=== PATIENT | female | born 1985 | race Caucasian/White ===

== ENCOUNTER 2016-04-08 18:33 | Emergency (ER) | payer OTHER ==
[~2016-04-08] VITALS: Ht 152.4 cm; Wt 87.8 kg
[~2016-04-08 18:33] MED LIST: ALPR-411 PO; FLUO10CA48 PO; LEVOIUD PV
[2016-04-08 18:55] VITALS: TEMP 37.2; Ht 152.4 cm; Wt 87.8 kg
[2016-04-08 21:01] LABS: BASO % 0.5 %; BASO ABS # 0.04 K/uL (0-0.2); COMPLETE YES; EOS % 3.8 %; HEMATOCRIT 39.4 % (37-47); IG% 0.3 %; LYMPH ABS # 2.36 K/uL (1.2-3.4); MEAN CELL VOLUME 92.5 fL (80-100); MEAN CORPUSCULAR HEMOGLOBIN 31.9 pg (25-34); MEAN CORPUSCULAR HGB CONC 34.5 g/dl (32-36); MEAN PLATELET VOLUME 10.2 fL (7.4-10.4); MONO % 7.3 %; NEUT % 61.1 %; PLATELET COUNT 272 K/uL (130-400); RED BLOOD COUNT 4.26 M/uL (4.2-5.4); WHITE BLOOD COUNT 8.75 K/uL (4.8-10.8)
[2016-04-08 21:04] LABS: MANUAL MICROSCOPIC REQUIRED? NO; REVIEW REQ? NO; URINE APPEARANCE CLEAR (CLEAR); URINE BILIRUBIN NEG (NEG); URINE COLOR YELLOW; URINE EPITHELIAL CELL AUTO >30 /lpf (0-5); URINE NITRITE NEG (NEG); URINE PH 5.5 (4.5-7.5); URINE SPECIFIC GRAVITY 1.024 (1.000-1.030); UROBILINOGEN NEG (NEG); ZZUR CULT IF INDIC CLEAN CATCH YES
[2016-04-08 21:23] LABS: PARTIAL THROMBOPLASTIN RATIO 1.1
[2016-04-08 21:26] LABS: BUN/CREATININE RATIO 13.7 (10-20); CALCIUM 9.1 mg/dl (8.5-10.1); CREATININE 0.81 mg/dl (0.60-1.20); POTASSIUM 3.9 mmol/L (3.5-5.1)
[2016-04-08 21:29] LABS: THYROID STIMULATING HORMONE 3.95 uIu/ml (0.300-4.500)
[2016-04-08 22:38] VITALS: BP 148/84; PULSE 64; O2SAT 98
--- NOTE | 2016-04-08 22:53 | EMERGENCY ROOM VISIT NOTE ---
History First contact with patient: 20:12 Chief Complaint: VAGINAL BLEEDING Stated Complaint: HEAVY MEN STRUAL BELEEDING W/ CRAMPING, HAVE IUD History of Present Illness The patient is a 30 year old female who presents to the Emergency Room with complaints of heavy menstrual bleeding for the past one month. The patient states that she has a Mirena IUD which was placed 4 years ago. She states that she has had a menstrual period for the past one month. Prior to that, she had a normal menstrual period and then one week without bleeding. She does not have an CALCULATION REVIEWER in the area. She states she has had some lower abdominal cramping today. The patient states that while she had her IUD, she did have normal monthly periods which were very light. She states that the bleeding is slightly heavier than a normal period now. She changes her tampon every 3 hours. She denies any history of bleeding disorders. She denies any abnormal vaginal discharge or urinary symptoms. She rates her discomfort a 3/10. Review of Systems A complete 10-point Review of Systems was discussed with the patient, with pertinent positives and negatives listed in the History of Present Illness. All remaining Review of Systems questions can be considered negative unless otherwise specified. Past Medical/Surgical History Medical Problems: (1) Depressive Disorder Nec (2) Tobacco Use Disorder Surgical Problems: (1) History of delivery Family History FH: HTN (hypertension) FH: cancer FH: diabetes mellitus Kidney stone Social History Smoking Status: Former Smoker Alcohol Use: occasionally Marital Status: Housing Status: lives with family Current/Historical Medications Scheduled Fluoxetine (Prozac), 20 MG PO DAILY Scheduled PRN Alprazolam (Xanax), 0.5 MG PO TID PRN for Anxiety Miscellaneous Medications Levonorgestrel (Iud) (Mirena), 1 PV Allergies Coded Allergies: Sulfa Drugs (Verified Allergy, Unknown, 04/08/16) Physical Exam Vital Signs Date Time Temp Pulse Resp B/P Pulse Ox O2 Delivery O2 Flow Rate FiO2 04/08/16 22:38 64 18 148/84 98 Room Air 04/08/16 18:55 37.2 69 16 155/94 97 Room Air Physical Exam VITALS: Vitals are noted on the nurse's note and reviewed by myself. Vital signs stable. GENERAL: This is a 30-year-old female, in no acute distress, nondiaphoretic, well-developed well-nourished. SKIN: Capillary reflex less than 2 seconds. HEART: Regular rate and rhythm without murmurs gallops or rubs. LUNGS: Clear to auscultation bilaterally without wheezes, rales or rhonchi. ABDOMEN: Positive bowel sounds x 4. Soft, nontender to palpation. PELVIC: Minimal amount of blood within the vaginal vault. IUD strings are visualized. NEURO: Patient was alert and oriented to person place and time. Medical Decision & Procedures ER Provider Diagnostic Interpretation: PELVIC ULTRASOUND CLINICAL HISTORY: Abnormal menstrual bleeding. Evaluate IUD. COMPARISON STUDY: None TECHNIQUE: Transabdominal and transvaginal sonography of the pelvis was performed. FINDINGS: The uterus measures 8.3 x 4 x 4.8 cm. The endometrium measures 3 mm in thickness. The IUD appears appropriately positioned by sonography. Penetration on this exam is suboptimal. The right ovary measures 3 x 2.1 x 2.6 cm and contains a 2.6 cm cyst. The left ovary measures 3.3 x 1.9 x 1.9 cm. There is color flow within each ovary. IMPRESSION: 1. Appropriately positioned IUD by sonography. 2. 2.6 cm right ovarian cyst. Laboratory Results 04/08/16 20:46 Red Blood Count 4.26, Mean Corpuscular Volume 92.5, Mean Corpuscular Hemoglobin 31.9, Mean Corpuscular Hemoglobin Concent 34.5, Mean Platelet Volume 10.2, Neutrophils (%) (Auto) 61.1, Lymphocytes (%) (Auto) 27.0, Monocytes (%) (Auto) 7.3, Eosinophils (%) (Auto) 3.8, Basophils (%) (Auto) 0.5, Neutrophils # (Auto) 5.35, Lymphocytes # (Auto) 2.36, Monocytes # (Auto) 0.64, Eosinophils # (Auto) 0.33, Basophils # (Auto) 0.04 04/08/16 20:46 Test 04/08/16 20:46 04/08/16 20:47 White Blood Count 8.75 K/uL (4.8-10.8) Red Blood Count 4.26 M/uL (4.2-5.4) Hemoglobin 13.6 g/dL (12.0-16.0) Hematocrit 39.4 % (37-47) Mean Corpuscular Volume 92.5 fL (80-100) Mean Corpuscular Hemoglobin 31.9 pg (25-34) Mean Corpuscular Hemoglobin Concent 34.5 g/dl (32-36) Platelet Count 272 K/uL (130-400) Mean Platelet Volume 10.2 fL (7.4-10.4) Neutrophils (%) (Auto) 61.1 % Lymphocytes (%) (Auto) 27.0 % Monocytes (%) (Auto) 7.3 % Eosinophils (%) (Auto) 3.8 % Basophils (%) (Auto) 0.5 % Neutrophils # (Auto) 5.35 K/uL (1.4-6.5) Lymphocytes # (Auto) 2.36 K/uL (1.2-3.4) Monocytes # (Auto) 0.64 K/uL (0.11-0.59) Eosinophils # (Auto) 0.33 K/uL (0-0.5) Basophils # (Auto) 0.04 K/uL (0-0.2) RDW Standard Deviation 48.2 fL (36.4-46.3) RDW Coefficient of Variation 14.4 % (11.5-14.5) Immature Granulocyte % (Auto) 0.3 % Immature Granulocyte # (Auto) 0.03 K/uL (0.00-0.02) Prothrombin Time 11.0 SECONDS (9.0-12.0) Prothromb Time International Ratio 1.0 (0.9-1.1) Activated Partial Thromboplast Time 28.4 SECONDS (21.0-31.0) Partial Thromboplastin Ratio 1.1 Anion Gap 10.0 mmol/L (3-11) Est Creatinine Clear Calc Drug Dose 99.2 ml/min Estimated GFR () 112.2 Estimated GFR (Non- 96.8 BUN/Creatinine Ratio 13.7 (10-20) Calcium Level 9.1 mg/dl (8.5-10.1) Thyroid Stimulating Hormone (TSH) 3.950 uIu/ml (0.300-4.500) Chemistry Specimen Hemolysis Urine Color YELLOW Urine Appearance CLEAR (CLEAR) Urine pH 5.5 (4.5-7.5) Urine Specific [place] 1.024 (1.000-1.030) Urine Protein NEG (NEG) Urine Glucose (UA) NEG (NEG) Urine Ketones NEG (NEG) Urine Occult Blood TRACE (NEG) Urine Nitrite NEG (NEG) Urine Bilirubin NEG (NEG) Urine Urobilinogen NEG (NEG) Urine Leukocyte Esterase NEG (NEG) Urine WBC (Auto) 1-5 /hpf (0-5) Urine RBC (Auto) 5-10 /hpf (0-4) Urine Hyaline Casts (Auto) 1-5 /lpf (0-5) Urine Epithelial Cells (Auto) >30 /lpf (0-5) Urine Bacteria (Auto) 1+ (NEG) Urine Test NEG (NEG) Medical Decision Differential diagnosis includes malpositioned IUD, abnormal uterine bleeding, fibroids, among others. The patient was evaluated as above. Labs were drawn and IV access was obtained. Imaging studies were performed and read by radiology as above. The patient was reassessed multiple times during their stay in the emergency department and remained in stable condition. The patient is a 30-year-old female who presents today complaining of vaginal bleeding. Pelvic exam showed the IUD in good placement. Ultrasound showed the IUD in appropriate position. Labs were unremarkable. Urine was negative. The patient was instructed to follow up with her CALCULATION REVIEWER for further evaluation. Based on the patient's presentation, lab results, and imaging studies, I feel the patient is stable for outpatient treatment. Discharge instructions were reviewed with the patient. The patient verbalized understanding of my assessment and treatment plan and was discharged home in good condition. Impression Primary Impression: Abnormal vaginal bleeding Departure Information Dispostion Home / Self-Care Condition GOOD Referrals Tiffanie Arredondo D.O. (PCP) Patient Instructions [facility] Additional Instructions For pain control, you can use the following [id number] medicines (if >12 yo): - Regular strength (325mg/tab) Tylenol (acetaminophen) 2 tabs every 4-6 hours as needed. Do not exceed 12 tablets in a 24 hour period. Avoid taking more than 4 grams (4000 mg) of Tylenol per day. This includes any other sources of acetaminophen you may take on a regular basis. - Regular strength (200 mg/tab) Advil (ibuprofen) 1-2 tabs every 4-6 hours as needed. Do not exceed a dose of 3200 mg per day. Call [facility] CALCULATION REVIEWER tomorrow to schedule a follow-up appointment. Return to the emergency department with worsening bleeding, worsening pelvic pain, or any other new/concerning symptoms.
--- NOTE | 2016-04-09 08:56 | DIAGNOSTIC IMAGING REPORT ---
PELVIC ULTRASOUND CLINICAL HISTORY: Abnormal menstrual bleeding. Evaluate IUD. COMPARISON STUDY: None TECHNIQUE: Transabdominal and transvaginal sonography of the pelvis was performed. FINDINGS: The uterus measures 8.3 x 4 x 4.8 cm. The endometrium measures 3 mm in thickness. The IUD appears appropriately positioned by sonography. Penetration on this exam is suboptimal. The right ovary measures 3 x 2.1 x 2.6 cm and contains a 2.6 cm cyst. The left ovary measures 3.3 x 1.9 x 1.9 cm. There is color flow within each ovary. IMPRESSION: 1. Appropriately positioned IUD by sonography. 2. 2.6 cm right ovarian cyst. Electronically signed by: Luis Russo M.D. 04/08/2016 10:50 PM Dictated Date/Time: 04/08/2016 10:45 PM
== END 2016-04-08 23:03 | disposition home or self-care (01) ==
LOC: C.EDB 18:35 → C.EDC 23:03
DX: N93.8 Other specified abnormal uterine and vaginal bleeding (principal); R10.30 Lower abdominal pain, unspecified; F32.9 Major depressive disorder, single episode, unspecified; Z97.5 Presence of (intrauterine) contraceptive device; Z79.899 Other long term (current) drug therapy; Z87.891 Personal history of nicotine dependence

== ENCOUNTER 2019-03-23 17:42 | Inpatient (IN) ==
[2019-03-23] MEDS ORDERED: ONDANSETRON INJ 2 MG/ML 2 ML VIAL IV STA ×2 (19:28→21:35)
[2019-03-23] MEDS ORDERED: SODIUM CHLORIDE 0.9% 1000ML 1,000 ML IV ONE (19:28)
[2019-03-23] MEDS ORDERED: KETOROLAC TROMETHAMINE 15 MG/ML VIAL IV STA ×2 (19:28→21:35)
[2019-03-23 20:02] LABS: Appearance Urine Turbid (Clear); Bacteria Urine Automated 1+ (Negative); Blood Urine 2+ (Negative); Color Urine Dark Yellow; Epithelial Cell Urine Auto >30 /lpf (0-5); Glucose Urine UA Negative (Negative); Ketones Urine 1+ (Negative); Leukocyte Esterase Urine Trace (Negative); Nitrite Urine Negative (Negative); Protein Urine Negative (Negative); Specific Gravity Urine 1.019 (1.000-1.030); Urobilinogen Urine Negative (Negative); WBC Urine Automated >30 /hpf (0-5); pH Urine 7.5 (4.5-7.5)
[2019-03-23 20:03] LABS: Bilirubin Urine 1+ (Negative)
[2019-03-23 20:05] LABS: Ictotest Urine Positive (Negative)
[2019-03-23 20:10] LABS: Basophils # (auto) 0.01 K/uL (0-0.2); Basophils % (auto) 0.1 %; Eosinophils # (auto) 0.12 K/uL (0-0.5); Hematocrit (blood only) 43.8 % (37-47); Immature Granulocytes # (auto) 0.03 K/uL (0.00-0.02); Immature Granulocytes % (auto) 0.2 %; Lymphocytes # (auto) 0.97 K/uL (1.2-3.4); Lymphocytes % (auto) 7.9 %; Mean Corpuscular Hemoglobin 32.7 pg (25-34); Mean Corpuscular Hgb Conc 34.2 g/dL (32-36); Mean Corpuscular Volume 95.4 fL (80-100); Mean Platelet Volume 10.7 fL (7.4-10.4); Monocytes # (auto) 0.69 K/uL (0.11-0.59); Monocytes % (auto) 5.6 %; Neutrophils # (auto) 10.49 K/uL (1.4-6.5); Neutrophils % (auto) 85.2 %; Platelet Count 256 K/uL (130-400); RDW Coefficient of Variation 14.9 % (11.5-14.5); Red Blood Count 4.59 M/uL (4.2-5.4); White Blood Count 12.31 K/uL (4.8-10.8)
[2019-03-23 20:12] LABS: Calcium Oxalate Crystals Urine Present (None Prsent); RBC Urine Automated 0-4 /hpf (0-4)
[2019-03-23 20:27] LABS: BUN Creatinine Ratio 7.6 (10-20); Bilirubin Direct 1.6 mg/dl (0-0.2); Calcium 9.2 mg/dl (8.5-10.1); Creatinine Clr Calc Pharmacy 101.6 ml/min; Est GFR (African American) 126.6; Est GFR (Non-African American) 109.3
[2019-03-23 20:30] LABS: Bilirubin,Total 2.5 mg/dl (0.2-1); Total Protein 8.2 gm/dl (6.4-8.2)
--- NOTE | 2019-03-23 21:09 | Ultrasound Report ---
ABDOMINAL ULTRASOUND, RIGHT UPPER QUADRANT HISTORY: Right upper quadrant pain.. COMPARISON: None. FINDINGS: Pancreas: The pancreatic tail is obscured by overlying bowel gas. The remaining portions of the pancr eas are within normal limits. Liver: No hepatic masses. There is mild intrahepatic bile duct dilatation. Gallbladder: There is a punctate gallstone and a small amount of gallbladder sludge. No gallbladder w all thickening. The gallbladder appears slightly distended. CBD: Distended common bile duct measures up to 9 mm. Right kidney: No hydronephrosis. IMPRESSION: 1. Dilated common bile duct and mild intrahepatic bile duct dilatation. This raises the possibility o f a distal common bile duct obstruction. ERCP or MRCP may help for further evaluation. 2. The gallbladder appears slightly distended. There is a punctate gallstone and a small amount of ga llbladder sludge. No gallbladder wall thickening at this time. ACT 112: Negative or not required by law. Electronically signed by: Jonathan Posey M.D. 03/23/2019 9:07 PM
--- NOTE | 2019-03-23 21:15 | XRay Report ---
CHEST AND ABDOMEN 2 VIEWS HISTORY: Right upper quadrant pain. Epigastric pain. COMPARISON: Chest 05/16/2012. FINDINGS: The lungs are clear. The cardiomediastinal silhouette is top normal in size. There is no pneumoperitoneum or pneumatosis. The bowel gas pattern is unremarkable. No evidence for b owel obstruction. No renal or ureteral calculi. An intrauterine device is seen within the mid pelvis. IMPRESSION: No acute cardiopulmonary process. No evidence for bowel obstruction. ACT 112: Negative or not required by law. Electronically signed by: Jonathan Posey M.D. 03/23/2019 9:14 PM
[2019-03-23] MEDS ORDERED: cefTRIAXone SODIUM 1,000 MG/50 ML BAG IV STA (21:36)
[2019-03-23] MEDS ORDERED: metroNIDAZOLE 500 MG/100 ML BAG IV STA (21:37)
[2019-03-23 22:10] LABS: Magnesium 2.4 mg/dl (1.8-2.4)
[2019-03-23 22:27] LABS: Thyroid Stimulating Hormone 1.18 uIu/ml (0.300-4.500)
--- NOTE | 2019-03-23 22:27 | Emergency Department Note ---
Entered by Marychuy Boyer acting as a scribe for Vin Richard History of Present Illness General Chief complaint: Abdominal Pain Stated complaint: GALBLADDER Time Seen by Provider: 03/23/19 19:24 History of Present Illness Provider complaint: abdominal pain Onset (ago): week(s) 1 Location: abdomen Pain Consistency: + other (worsening) Maximum Pain Intensity: 6 Associated symptoms: + denies other symptoms (abnormal vaginal bleeding or discharge, vomiting) and + other (pain became severe last night, does not believe she is becuase she has an IUD, unprotected sex, nausea) Treatments prior to arrival: none The patient is a 33 year old female who presents to the ED with complaints of worsening abdominal pain that started 1 week ago. Pain is located in the right upper quadrant and epigastric area. No radiation of the pain. The patient states that her pain became severe starting last night. The patient states that she does not believe she is because she has an IUD, but she does admit to having unprotected sex. The patient denies abnormal vaginal bleeding or discharge. The patient states that she feels nauseas but she denies vomiting. The patient denies taking any treatments prior to arrival. The patient notes that she has a history of section. Home Medications Home Medications Medication Instructions Recorded Confirmed Type multivitamin 1 tab PO DAILY 03/23/19 03/23/19 History Allergies Allergy/AdvReac Type Severity Reaction Status Date / Time Sulfa (Sulfonamide Allergy Unknown Unknown Verified 03/23/19 20:24 Antibiotics) Past Med/Surg History Social History Preferred Language: Guyanese Feels Safe at Home: Yes Smoking Status: Never smoker Review of Systems See HPI for pertinent positives & negatives. and A total of 10 systems reviewed and were otherwise negative Physical Exam Vital Signs Vital Signs - 24 hr 03/23/19 17:46 03/23/19 20:34 03/23/19 21:00 Temperature 36.5 C Temperature Source Oral Pulse Rate 64 Pulse Rate [Left Finger] 77 65 Pulse Rhythm Regular Pulse Strength Normal Respiratory Rate 20 18 18 Respiratory Effort / Characteristics Non-Labored Spontaneous Non-Labored Spontaneous Non-Labored Spontaneous Respiratory Depth Normal Normal Normal Respiratory Pattern Regular Regular Regular Blood Pressure 151/92 H Blood Pressure [Left Arm] 129/80 151/88 H Blood Pressure Mean 111 Blood Pressure Mean [Left Arm] 96 109 Blood Pressure Position Sitting Blood Pressure Position [Left Arm] Lying Pulse Oximetry 98 97 96 Oxygen Delivery Method Room Air Room Air Room Air Sepsis Recent Fever Within 48 Hours No Sepsis New/Unexplained Change in Mental Status No Sepsis Action Taken by Nursing No Action Required GENERAL: She is oriented to person, place, and time. She appears well-developed and well-nourished. She does not appear distressed. HENT: Exam performed. -Head: Normocephalic and atraumatic. -Right Ear: External ear normal. No mastoid tenderness. -Left Ear: External ear normal. No mastoid tenderness. -Mouth/Throat: The oropharynx is clear and moist. No trismus in the jaw. No dental abscesses or uvula swelling. No oropharyngeal exudate or tonsillar abscesses. EYES: Conjunctivae and EOM are normal. Pupils are equal, round, and reactive to light. Right eye exhibits no discharge. Left eye exhibits no discharge. No scleral icterus. NECK: Normal range of motion. Neck supple. No JVD present. No spinous process tenderness present. No carotid bruit present. No rigidity. No tracheal deviation and normal range of motion present. No Brudzinski's sign and no Kernig's sign noted. CV: Normal rate, regular rhythm, normal heart sounds and intact distal pulses. There is no peripheral edema. Palpable radial pulses bue. PULM/CHEST: Effort normal and breath sounds normal. No respiratory distress. No stridor. She has no wheezes. She has no rales. Chest Wall: She exhibits no tenderness. ABD: Pain to palpation of epigastric region and RUQ. The abdomen is soft. Bowel sounds are normal. She has no distension. No mass is present. There is no rebound, no guarding, no Pelayo's sign and no tenderness at McBurney's point. Rovsig negative MUSC/SKEL: Normal range of motion. There is no peripheral edema, tenderness or deformity. LYMPH: No cervical adenopathy. NEURO: She is alert and oriented to person, place, and time. She has normal strength. No cranial nerve deficit or sensory deficit. Coordination and gait n ormal. GCS eye subscore is 4. GCS verbal subscore is 5. GCS motor subscore is 6. cerbellar tests wnl. SKIN: Skin is warm and dry. She is not diaphoretic. PSYCH: She has a normal mood and affect. Her behavior is normal. Judgment and thought content normal. Course Course 1922: Past medical records reviewed. The patient was evaluated in room A09A. A complete history and physical exam was performed. 2127: Vital signs stable. Labs show leukocytosis of 12.3. Bilirubin 2.5, direct bilirubin 1.6. AST/ALT 367/306 respectively. Ultrasound showed a dilated, bile duct and intrahepatic ducts. Recommend ERCP and MRCP. I discussed the patient's case with Dr. Elmer Interiano. He will evaluate the patient for further management. I discussed the patient's case with Dr. Shamar Obrien. He agreed to be on consult. He states that MRCP should be done in the morning, and if it is positive, he will arrange for ER CP.He suggests ordering antibiotics, Rocephin and Flagyl. Consultations Consultation #1: I discussed the patient's case with Dr. Elmer Interiano. He will evaluate the patient for further management. Time: 21:28 Consultation #2: I discussed the patient's case with Dr. Shamar Obrien. He agreed to be on consult. MRCP will be done in the morning, and if it is positive, he will arrange for ER CP. He suggests ordering antibiotics Time: 21:31 Administered Medications Metronidazole (Flagyl) 500 mg in 100 mls @ 100 mls/hr IV NOW STA Stop: 03/23/19 22:36 Last Admin: 03/23/19 21:52 Dose: 100 mls/hr Documented by: [id number] Discontinued Medications Sodium Chloride (Nss 1000ml) 1,000 mls @ 999 mls/hr IV .Q1H1M ONE Stop: 03/23/19 20:28 Last Infusion: 03/23/19 21:01 Dose: 0 mls/hr Documented by: [id number] Admin: 03/23/19 19:53 Dose: 999 mls/hr Documented by: [id number] Ceftriaxone Sodium (Rocephin) 1,000 mg in 50 mls @ 100 mls/hr IV NOW STA Stop: 03/23/19 22:05 Last Admin: 03/23/19 21:52 Dose: 100 mls/hr Documented by: [id number] Ketorolac Tromethamine (Toradol) 15 mg IV NOW STA Stop: 03/23/19 19:29 Last Admin: 03/23/19 19:56 Dose: 15 mg Documented by: [id number] Ondansetron HCl (Zofran) 4 mg IV NOW STA Stop: 03/23/19 19:29 Last Admin: 03/23/19 19:55 Dose: 4 mg Documented by: [id number] Medical Decision Making Medical Records Attestation: I reviewed the patient's medical records. Home Medications Current Medication List: was personally reviewed by me Laboratory Data Attestation: I reviewed the patient's lab results. Result diagrams: 03/23/19 19:47 03/23/19 19:47 Lab Results 03/23/19 03/23/19 03/23/19 Range/Units 19:29 19:47 19:47 WBC 12.31 H (4.8-10.8) K/uL RBC 4.59 (4.2-5.4) M/uL Hgb 15.0 (12.0-16.0) g/dL Hct 43.8 (37-47) % MCV 95.4 (80-100) fL MCH 32.7 (25-34) pg MCHC 34.2 (32-36) g/dL RDW Std Deviation 52.0 H (36.4-46.3) fL RDW Coeff of Dennys 14.9 H (11.5-14.5) % Plt Count 256 (130-400) K/uL MPV 10.7 H (7.4-10.4) fL Immature Gran % (Auto) 0.2 % Neut % (Auto) 85.2 % Lymph % (Auto) 7.9 % [place] % (Auto) 5.6 % Eos % (Auto) 1.0 % Baso % (Auto) 0.1 % Immature Gran # (Auto) 0.03 H (0.00-0.02) K/uL Neut # (Auto) 10.49 H (1.4-6.5) K/uL Lymph # (Auto) 0.97 L (1.2-3.4) K/uL [place] # (Auto) 0.69 H (0.11-0.59) K/uL Eos # (Auto) 0.12 (0-0.5) K/uL Baso # (Auto) 0.01 (0-0.2) K/uL Sodium 138 (136-145) mmol/L Potassium 4.0 (3.5-5.1) mmol/L Chloride 104 (98-107) mmol/L Carbon Dioxide 28 (21-32) mmol/L Anion Gap 6.0 (3-11) BUN 6 L (7-18) mg/dl Creatinine 0.72 (0.6-1.2) mg/dl Est Cr Clr Drug Dosing 101.6 ml/min Est GFR ( Amer) 126.6 Est GFR (Non-Af Amer) 109.3 BUN/Creatinine Ratio 7.6 L (10-20) Glucose 108 H (70-99) mg/dl Calcium 9.2 (8.5-10.1) mg/dl Magnesium 2.4 (1.8-2.4) mg/dl Total Bilirubin 2.5 H (0.2-1) mg/dl Direct Bilirubin 1.6 H (0-0.2) mg/dl AST 367 H (15-37) U/L ALT 306 H (12-78) U/L Alkaline Phosphatase 101 (45-117) U/L Total Protein 8.2 (6.4-8.2) gm/dl Albumin 4.0 (3.4-5.0) gm/dl Lipase 83 (73-393) U/L Urine Color Urine Appearance (Clear) Urine pH (4.5-7.5) Ur Specific [place] (1.000-1.030) Urine Protein (Negative) Urine Glucose (UA) (Negative) Urine Ketones (Negative) Urine Blood (Negative) Urine Nitrite (Negative) Urine Bilirubin (Negative) Urine Urobilinogen (Negative) Ur Leukocyte Esterase (Negative) Urine WBC (Auto) (0-5) /hpf Urine RBC (Auto) (0-4) /hpf U Hyaline Cast (Auto) (0-5) /lpf U Epithel Cells (Auto) (0-5) /lpf Urine Bacteria (Auto) (Negative) Urine Crystals (None Prsent) Calcium Oxalate Crystal (None Prsent) POC Ur Test NEG (NEG) 03/23/19 Range/Units 19:47 WBC (4.8-10.8) K/uL RBC (4.2-5.4) M/uL Hgb (12.0-16.0) g/dL Hct (37-47) % MCV (80-100) fL MCH (25-34) pg MCHC (32-36) g/dL RDW Std Deviation (36.4-46.3) fL RDW Coeff of Dennys (11.5-14.5) % Plt Count (130-400) K/uL MPV (7.4-10.4) fL Immature Gran % (Auto) % Neut % (Auto) % Lymph % (Auto) % [place] % (Auto) % Eos % (Auto) % Baso % (Auto) % Immature Gran # (Auto) (0.00-0.02) K/uL Neut # (Auto) (1.4-6.5) K/uL Lymph # (Auto) (1.2-3.4) K/uL [place] # (Auto) (0.11-0.59) K/uL Eos # (Auto) (0-0.5) K/uL Baso # (Auto) (0-0.2) K/uL Sodium (136-145) mmol/L Potassium (3.5-5.1) mmol/L Chloride (98-107) mmol/L Carbon Dioxide (21-32) mmol/L Anion Gap (3-11) BUN (7-18) mg/dl Creatinine (0.6-1.2) mg/dl Est Cr Clr Drug Dosing ml/min Est GFR ( Amer) Est GFR (Non-Af Amer) BUN/Creatinine Ratio (10-20) Glucose (70-99) mg/dl Calcium (8.5-10.1) mg/dl Magnesium (1.8-2.4) mg/dl Total Bilirubin (0.2-1) mg/dl Direct Bilirubin (0-0.2) mg/dl AST (15-37) U/L ALT (12-78) U/L Alkaline Phosphatase (45-117) U/L Total Protein (6.4-8.2) gm/dl Albumin (3.4-5.0) gm/dl Lipase (73-393) U/L Urine Color Dark Yellow Urine Appearance Turbid A (Clear) Urine pH 7.5 (4.5-7.5) Ur Specific [place] 1.019 (1.000-1.030) Urine Protein Negative (Negative) Urine Glucose (UA) Negative (Negative) Urine Ketones 1+ H (Negative) Urine Blood 2+ H (Negative) Urine Nitrite Negative (Negative) Urine Bilirubin 1+ H (Negative) Urine Urobilinogen Negative (Negative) Ur Leukocyte Esterase Trace H (Negative) Urine WBC (Auto) >30 H (0-5) /hpf Urine RBC (Auto) 0-4 (0-4) /hpf U Hyaline Cast (Auto) 1-5 (0-5) /lpf U Epithel Cells (Auto) >30 H (0-5) /lpf Urine Bacteria (Auto) 1+ H (Negative) Urine Crystals Calcium Oxalate A (None Prsent) Calcium Oxalate Crystal Present A (None Prsent) POC Ur Test (NEG) Imaging Data Radiologist's Impression: Radiology results as stated below per my review and the radiologist's interpretation: CHEST AND ABDOMEN 2 VIEWS HISTORY: Right upper quadrant pain. Epigastric pain. COMPARISON: Chest 05/16/2012. FINDINGS: The lungs are clear. The cardiomediastinal silhouette is top normal in size. There is no pneumoperitoneum or pneumatosis. The bowel gas pattern is unremarkab le. No evidence for bowel obstruction. No renal or ureteral calculi. An intrauterine device is seen within the mid pelvis. IMPRESSION: No acute cardiopulmonary process. No evidence for bowel obstruction. ACT 112: Negative or not required by law. Electronically signed by: Jonathan Posey M.D. 03/23/2019 9:14 PM ABDOMINAL ULTRASOUND, RIGHT UPPER QUADRANT HISTORY: Right upper quadrant pain.. COMPARISON: None. FINDINGS: Pancreas: The pancreatic tail is obscured by overlying bowel gas. The remaining portions of the pancreas are within normal limits. Liver: No hepatic masses. There is mild intrahepatic bile duct dilatation. Gallbladder: There is a punctate gallstone and a small amount of gallbladder sludge. No gallbladder wall thickening. The gallbladder appears slightly distended. CBD: Distended common bile duct measures up to 9 mm. Right kidney: No hydronephrosis. IMPRESSION: 1. Dilated common bile duct and mild intrahepatic bile duct dilatation. This raises the possibility of a distal common bile duct obstruction. ERCP or MRCP may help for further evaluation. 2. The gallbladder appears slightly distended. There is a punctate gallstone and a small amount of gallbladder sludge. No gallbladder wall thickening at this time. ACT 112: Negative or not required by law. Electronically signed by: Jonathan Posey M.D. 03/23/2019 9:07 PM Blood Pressure Blood Pressure Findings: Elevated blood pressure Blood Pressure Disposition: further management by hospitalist MDM Narrative Vital signs stable. Labs show leukocytosis of 12.3. Bilirubin 2.5, direct bilirubin 1.6. AST/ALT 367/306 respectively. Ultrasound showed a dilated, bile duct and intrahepatic ducts. Recommend ERCP and MRCP. I discussed the patient's case with Dr. Elmer Pinedo Hospitalist. He will evaluate the patient for further management. I discussed the patient's case with Dr. Panda- Gastroenterology. He agreed to be on consult. He states that MRCP should be done in the morning, and if it is positive, he will arrange for ER CP.He suggests ordering antibiotics, Rocephin and Flagyl. Impression & Plan Jaundice, RUQ abdominal pain, Bile duct obstruction, Elevated liver enzymes Discharge Plan Visit Data Chief Complaint: Abdominal Pain Stated Complaint: GALBLADDER ED Provider: Vin Richard Discharge Problem: Jaundice, RUQ abdominal pain, Bile duct obstruction, Elevated liver enzymes Patient Disposition: Being Evaluated by Hospitalist Forms Stand Alone Forms: Call Back Authorization, My [facility] [employer] - [email or web address] Prescriptions Prescriptions: No Action multivitamin Tablet,Chewable 1 tab PO DAILY RF: 0 Referrals Referrals: Tiffanie Arredondo DO [Primary Care Provider] - The scribe's documentation has been prepared under my direction and personally reviewed by me in its entirety. I confirm that the note above accurately reflects all work, treatment, procedures, and medical decision making performed by me.
--- NOTE | 2019-03-23 22:41 | History & Physical Report ---
Date of Service March 23, 2019 Assessment & Plan (1) Abdominal pain: With abnormal LFTs Rule out choledocholithiasis No sepsis for now Situational hypertension Past tobacco abuse OBS GMF GI consult RE abdominal pain with abnormal LFTs (ER provider already in touch with Dr. Panda who recommends antibiotic load and MRCP.) Analgesia DVT prophylaxis. Lovenox subcu Full code History of Present Illness Chief Complaint: Abdominal pain Primary Care Provider: Tiffanie Arredondo DO History obtained from patient and records. Medical history significant for mood disorder, past tobacco abuse. 1 week history of achy epigastric discomfort, intermittent symptoms somewhat worsened with food intake. No fever, no chills. Some nausea, dry heaving. No actual emesis. Patient worried it might be her gallbladder. 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 Beliefs That Will Affect Care: None Current Living Situation: Spouse Feels Safe at Home: Yes Smoking Status: Former smoker Hx Alcohol Use: Yes Hx Substance Use: No Review of Systems Review of Systems: As per HPI, all 10 systems reviewed, all other ROS negative Physical Exam Physical Exam: GENERAL: Slightly uncomfortable, pleasant, obese, no respiratory distress SKIN: Normal color, warm HEENT: [place] palpebral conjunctivae, no ptosis, dry buccal mucosa NECK : Supple, no tenderness CHEST : CTA, no tenderness HEART : RRR, no obvious murmurs ABDOMEN: Some distention, epigastric tenderness EXTREMITIES : No LE swelling/tenderness, no other conspicuous deformities noted NEUROLOGIC : Coherent, no facial asymmetry, no other gross focality Results & Data Vital Signs (Past 12 Hours) Vital Signs Temp Pulse Pulse Resp BP BP Pulse Ox 03/23/19 21:00 65 18 151/88 H 96 03/23/19 20:34 77 18 129/80 97 03/23/19 17:46 36.5 C 64 20 151/92 H 98 Laboratory Results Laboratory Results WBC 12.31 K/uL (4.8-10.8) H 03/23/19 19:47 RBC 4.59 M/uL (4.2-5.4) 03/23/19 19:47 Hgb 15.0 g/dL (12.0-16.0) 03/23/19 19:47 Hct 43.8 % (37-47) 03/23/19 19:47 MCV 95.4 fL (80-100) 03/23/19 19:47 MCH 32.7 pg (25-34) 03/23/19 19:47 MCHC 34.2 g/dL (32-36) 03/23/19 19:47 RDW Std Deviation 52.0 fL (36.4-46.3) H 03/23/19 19:47 RDW Coeff of Dennys 14.9 % (11.5-14.5) H 03/23/19 19:47 Plt Count 256 K/uL (130-400) 03/23/19 19:47 MPV 10.7 fL (7.4-10.4) H 03/23/19 19:47 Immature Gran % (Auto) 0.2 % 03/23/19 19:47 Neut % (Auto) 85.2 % 03/23/19 19:47 Lymph % (Auto) 7.9 % 03/23/19 19:47 [place] % (Auto) 5.6 % 03/23/19 19:47 Eos % (Auto) 1.0 % 03/23/19 19:47 Baso % (Auto) 0.1 % 03/23/19 19:47 Immature Gran # (Auto) 0.03 K/uL (0.00-0.02) H 03/23/19 19:47 Neut # (Auto) 10.49 K/uL (1.4-6.5) H 03/23/19 19:47 Lymph # (Auto) 0.97 K/uL (1.2-3.4) L 03/23/19 19:47 [place] # (Auto) 0.69 K/uL (0.11-0.59) H 03/23/19 19:47 Eos # (Auto) 0.12 K/uL (0-0.5) 03/23/19 19:47 Baso # (Auto) 0.01 K/uL (0-0.2) 03/23/19 19:47 Sodium 138 mmol/L (136-145) 03/23/19 19:47 Potassium 4.0 mmol/L (3.5-5.1) 03/23/19 19:47 Chloride 104 mmol/L (98-107) 03/23/19 19:47 Carbon Dioxide 28 mmol/L (21-32) 03/23/19 19:47 Anion Gap 6.0 (3-11) 03/23/19 19:47 BUN 6 mg/dl (7-18) L 03/23/19 19:47 Creatinine 0.72 mg/dl (0.6-1.2) 03/23/19 19:47 Est Cr Clr Drug Dosing 101.6 ml/min 03/23/19 19:47 Est GFR ( Amer) 126.6 03/23/19 19:47 Est GFR (Non-Af Amer) 109.3 03/23/19 19:47 BUN/Creatinine Ratio 7.6 (10-20) L 03/23/19 19:47 Glucose 108 mg/dl (70-99) H 03/23/19 19:47 Calcium 9.2 mg/dl (8.5-10.1) 03/23/19 19:47 Magnesium 2.4 mg/dl (1.8-2.4) 03/23/19 19:47 Total Bilirubin 2.5 mg/dl (0.2-1) H 03/23/19 19:47 Direct Bilirubin 1.6 mg/dl (0-0.2) H 03/23/19 19:47 AST 367 U/L (15-37) H 03/23/19 19:47 ALT 306 U/L (12-78) H 03/23/19 19:47 Alkaline Phosphatase 101 U/L (45-117) 03/23/19 19:47 Total Protein 8.2 gm/dl (6.4-8.2) 03/23/19 19:47 Albumin 4.0 gm/dl (3.4-5.0) 03/23/19 19:47 Lipase 83 U/L (73-393) 03/23/19 19:47 TSH 1.180 uIu/ml (0.300-4.500) 03/23/19 19:47 Urine Color Dark Yellow 03/23/19 19:47 Urine Appearance Turbid (Clear) A 03/23/19 19:47 Urine pH 7.5 (4.5-7.5) 03/23/19 19:47 Ur Specific [place] 1.019 (1.000-1.030) 03/23/19 19:47 Urine Protein Negative (Negative) 03/23/19 19:47 Urine Glucose (UA) Negative (Negative) 03/23/19 19:47 Urine Ketones 1+ (Negative) H 03/23/19 19:47 Urine Blood 2+ (Negative) H 03/23/19 19:47 Urine Nitrite Negative (Negative) 03/23/19 19:47 Urine Bilirubin 1+ (Negative) H 03/23/19 19:47 Urine Urobilinogen Negative (Negative) 03/23/19 19:47 Ur Leukocyte Esterase Trace (Negative) H 03/23/19 19:47 Urine WBC (Auto) >30 /hpf (0-5) H 03/23/19 19:47 Urine RBC (Auto) 0-4 /hpf (0-4) 03/23/19 19:47 U Hyaline Cast (Auto) 1-5 /lpf (0-5) 03/23/19 19:47 U Epithel Cells (Auto) >30 /lpf (0-5) H 03/23/19 19:47 Urine Bacteria (Auto) 1+ (Negative) H 03/23/19 19:47 Urine Crystals Calcium Oxalate (None Prsent) A 03/23/19 19:47 Calcium Oxalate Crystal Present (None Prsent) A 03/23/19 19:47 POC Ur Test NEG (NEG) 03/23/19 19:29 Diagnostic Findings Gallbladder ultrasound: 1. Dilated common bile duct and mild intrahepatic bile duct dilatation. This raises the possibility of a distal common bile duct obstruction. ERCP or MRCP may help for further evaluation. 2. The gallbladder appears slightly distended. There is a punctate gallstone and a small amount of gallbladder sludge. No gallbladder wall thickening at this time. Chest abdomen x-ray: No acute cardiopulmonary process. No evidence for bowel obstruction.
[2019-03-23] MEDS ORDERED: LORazepam 0.5 MG/1 ML VIAL IV PRN (23:29)
[2019-03-23] MEDS ORDERED: ACETAMINOPHEN 325 MG TAB PO PRN (23:29)
[2019-03-23] MEDS ORDERED: LACTATED RINGER'S 1,000 ML IV SCH (23:29)
[2019-03-23] MEDS ORDERED: MoRPHine SULFATE 4 MG/ML 1 ML CARP\\VIAL IV STA (23:29)
[2019-03-23] MEDS ORDERED: MoRPHine SULFATE 4 MG/ML 1 ML CARP\\VIAL ONE (23:40)
--- NOTE | 2019-03-24 06:36 | Magnetic Resonance Report ---
Study: MRCP HISTORY: Pain. Gallstones. FINDINGS: The liver shows uniform signal characteristics throughout. There is moderate intrahepatic b iliary ductal distention. Pancreas appears uniform. Kidneys are negative for hydronephrosis. Gallbladder demonstrates several small gallstones. It may be a trace gallbladder sludge. Mild wall thickening of the gated distal gastric antrum is present. MRCP component of the examination demonstrates a focal annular narrowing of the origin of the right a s well as left intrahepatic bile ducts. No well-defined filling defect within a distended common bile duct is present. Maximum common bile duct measurement is 1.0 cm. No significant upper abdominal adenopathy. IMPRESSION: 1. Several very small gallstones.. 2. Moderate distention of the common bile duct as well as intrahepatic ducts. 3. Moderate narrowing origin of the right as well as left intrahepatic bile duct. 4. No well-defined filling defects are seen. 5. ERCP is suggested to ascertain the etiology of the narrowing of the confluence of the right as wel l as left intrahepatic bile ducts. Electronically signed by: Zhang Callejas M.D. 03/24/2019 6:35 AM
[2019-03-24 06:51] LABS: Basophils # (auto) 0.02 K/uL (0-0.2); Basophils % (auto) 0.4 %; Eosinophils # (auto) 0.11 K/uL (0-0.5); Hematocrit (blood only) 40.4 % (37-47); Hemoglobin 13.3 g/dL (12.0-16.0); Lymphocytes # (auto) 1.08 K/uL (1.2-3.4); Lymphocytes % (auto) 19.3 %; Mean Corpuscular Hemoglobin 31.7 pg (25-34); Mean Corpuscular Hgb Conc 32.9 g/dL (32-36); Mean Corpuscular Volume 96.4 fL (80-100); Mean Platelet Volume 10.6 fL (7.4-10.4); Monocytes # (auto) 0.58 K/uL (0.11-0.59); Monocytes % (auto) 10.4 %; Neutrophils # (auto) 3.81 K/uL (1.4-6.5); Neutrophils % (auto) 67.9 %; Platelet Count 233 K/uL (130-400); RDW Standard Deviation 52.8 fL (36.4-46.3); Red Blood Count 4.19 M/uL (4.2-5.4)
[2019-03-24 07:22] LABS: Albumin Level 3.2 gm/dl (3.4-5.0); Calcium 8.5 mg/dl (8.5-10.1); Potassium 3.8 mmol/L (3.5-5.1)
[2019-03-24 07:36] LABS: Albumin Globulin Ratio 0.9 (0.9-2); Bilirubin,Total 3.5 mg/dl (0.2-1); Globulin 3.7 gm/dl (2.5-4.0); Total Protein 6.9 gm/dl (6.4-8.2)
[2019-03-24] MEDS: MULTIVITAMIN TAB PO SCH (08:15)
[2019-03-24] MEDS: ENOXAPARIN INJ 40 MG/0.4 ML SYR SQ SCH (08:46)
--- NOTE | 2019-03-24 14:35 | Gastrointestinal Consultation ---
Date of Consultation March 24, 2019 Assessment & Plan (1) RUQ abdominal pain: (2) Bile duct obstruction: (3) Elevated liver enzymes: (4) Jaundice: Recommend continued IV Abx as prescribed Recommend EUS/ERCP this admission for further evaluation of symptoms Advance to clear liquid diet Continue supportive care History of Present Illness Reason for Consultation: RUQ abdominal pain, Abnormal LFT's Attending Physician: Rita Mckinnon DO History of Present Illness Magali Pulido presented to the ER last night with a 1 week history of RUQ abdominal pain, nausea and vomiting. She states that she has had worsening symptoms over the past week, but did have symptoms over the past few months intermittently. She states that her RUQ abdominal pain increased to 9/10 in intensity, non-radiating, associated with severe nausea, worsened with eating with no alleviating factors. She presented to the ER last night, and was noted to have significant elevations of AST, ALT and bilirubin and her WBC count. A RUQ US showed biliary ductal dilation as was as mild intrahepatic ductal dilation as well as cholelithiasis. She was subsequently admitted, kept NPO, and started on IV Abx. She did undergo an MRCP today, and was found to have intra and extrahepatic ductal dilation with narrowing at right and left intrahep atic ducts. ERCP was recommended for further evaluation. At present she is afebrile, her pain has decreased to 3/10 in intensity, and her WBC count has decreased to normal overnight, following IV abx administration. She denies any current fevers, chills, nausea, vomiting, hematemesis, melena, hematochezia, diarrhea or other complaints. 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
[2019-03-24] MEDS: PROMETHAZINE HCL 12.5 MG in SODIUM CHLORIDE 0.9% 50 ML IV PRN (15:28)
[2019-03-24] MEDS ORDERED: LORazepam 0.5 MG TAB PO PRN (15:49)
--- NOTE | 2019-03-24 15:52 | Hospitalist Progress Note ---
Date of Service March 24, 2019 Assessment & Plan (1) Bile duct obstruction: MRCP positive for biliary stones. EUS/ERCP planned for this admission per GI. Will consult general surgery to discuss consideration for cholecystectomy. Cont pain control and antiemetics as needed. Cont Ceftriaxone/Flagyl. Blood cultures ordered with h/o chills. (2) Jaundice: ERCP will be definitive treatment. (3) Elevated liver enzymes: 2/2 obstructive process. ERCP/EUS as above. Cont to monitor. (4) Anxiety: h/o Prozac use, but off 2/2 insurance loss. Used Ativan with success in the past. Will cont this now PRN. (5) DVT prophylaxis: SCDs/ ambulation Full Code Dispo-to home when medically stable. [facility] Subject[facility] History of intermittent RUQ pains, never fully investigated per her report. Has a h/o anxiety which is currently uncontrolled under these circumstances. Reports that her pain was well managed with the morphine given overnight, but she is now feeling some abdominal swelling and pain return. She is not eating much because of the pain, but is hungry. She has been advanced to clear liquids. No BM yet. Otherwise doing well. Denies dysuria or back pain. Review of Systems Review of Systems: All systems reviewed & are unremarkable except as noted in HPI & below Physical Exam Physical Exam: CONSTITUTIONAL: WNWD, vitals as above, generally well- appearing EYES: normal conjunctivae, no scleral icterus ENT: MMM RESPIRATORY: clear to auscultation bilaterally, no crackles, rales or wheezes, normal respiratory effort CARDIOVASCULAR: regular rate and rhythm, S1 and 2 heard without murmurs, gallops or rubs, no JVD, no peripheral edema GASTROINTESTINAL: normal bowel sounds, soft, nontender, nondistended MUSCULOSKELETAL: strength 5/5 throughout, head is normocephalic and atraumatic SKIN: warm and dry, +tattooes NEUROLOGIC: CN 2-12 grossly intact, no sensory deficit, normal cognition, normal speech, no gross focal deficits. PSYCHIATRIC: alert cooperative and oriented to person, place and time. Results & Data Vital Signs (Past 12 Hours) Vital Signs Temp Pulse Resp BP Pulse Ox 03/24/19 15:13 36.7 C 63 16 134/89 97 03/24/19 07:42 36.7 C 94 H 16 133/87 91 Laboratory Results Short CBC 03/23/19 03/24/19 Range/Units 19:47 06:34 WBC 12.31 H 5.60 (4.8-10.8) K/uL Hgb 15.0 13.3 (12.0-16.0) g/dL Hct 43.8 40.4 (37-47) % Plt Count 256 233 (130-400) K/uL BMP 03/23/19 03/24/19 19:47 06:34 Sodium 138 139 Potassium 4.0 3.8 Chloride 104 107 Carbon Dioxide 28 30 BUN 6 L 5 L Creatinine 0.72 0.70 Glucose 108 H 89 Calcium 9.2 8.5 Liver Function 03/23/19 03/24/19 Range/Units 19:47 06:34 Total Bilirubin 2.5 H 3.5 H (0.2-1) mg/dl Direct Bilirubin 1.6 H (0-0.2) mg/dl AST 367 H 389 H (15-37) U/L ALT 306 H 379 H (12-78) U/L Alkaline Phosphatase 101 96 (45-117) U/L Albumin 4.0 3.2 L (3.4-5.0) gm/dl Urine 03/23/19 Range/Units 19:47 Urine Color Dark Yellow Urine Appearance Turbid A (Clear) Urine pH 7.5 (4.5-7.5) Ur Specific [place] 1.019 (1.000-1.030) Urine Protein Negative (Negative) Urine Glucose (UA) Negative (Negative) Medications Administered Current Inpatient Medications Acetaminophen (Tylenol) 325 mg PO Q6H PRN PRN Reason: pain/fever Stop: 04/22/19 23:28 Last Admin: 03/24/19 10:11 Dose: 325 mg Documented by: Enoxaparin Sodium (Lovenox) 40 mg SQ QAM [facility] Stop: 04/23/19 08:59 Last Admin: 03/24/19 08:46 Dose: 40 mg Documented by: Promethazine HCl 12.5 mg/ (Sodium Chloride) 50.5 mls @ 202 mls/hr IV Q6H PRN PRN Reason: Nausea And Vomiting Stop: 04/22/19 23:28 Last Admin: 03/24/19 15:28 Dose: 202 mls/hr Documented by: Lorazepam (Ativan) 0.5 mg in 1 mls @ 1 mls/min IV Q4H PRN PRN Reason: Anxiety/Agitation Stop: 04/22/19 23:28 Ceftriaxone Sodium 1,000 mg/ (Dextrose) 50 mls @ 100 mls/hr IV Q24H [place]; Protocol Stop: 04/03/19 19:59 Metronidazole (Flagyl) 500 mg in 100 mls @ 100 mls/hr IV Q8H [place] Stop: 04/03/19 14:59 Sodium Chloride (Nss 1000ml) 1,000 mls @ 125 mls/hr IV .Q8H [facility] Stop: 03/25/19 07:59 Lorazepam (Ativan) 0.5 mg PO Q8H PRN PRN Reason: Anxiety Stop: 04/23/19 15:48 Morphine Sulfate (Morphine Sulfate) 4 mg IV Q4H PRN PRN Reason: Pain Stop: 04/06/19 23:28 Multivitamins (Multivitamin Tab) 1 tab PO DAILY [facility] Stop: 04/23/19 08:59 Last Admin: 03/24/19 08:15 Dose: Not Given Documented by: Tramadol HCl (Ultram) 25 - 50 mg PO Q4H PRN PRN Reason: Pain Stop: 04/22/19 23:28
[2019-03-24] MEDS: metroNIDAZOLE 500 MG/100 ML BAG IV SCH ×2 (16:29→22:10)
[2019-03-24] MEDS: SODIUM CHLORIDE 0.9% 1000ML 1,000 ML IV SCH (16:29)
--- NOTE | 2019-03-24 18:26 | Surgery Consultation ---
Date of Consultation March 24, 2019 Assessment & Plan (1) Abdominal pain: pt is a 33 year-old female who was admitted to hospital for 1 week history RUQ pain, abnormal LFT'S IMP: RUQ pain, abnormal LFT'S, possible CBD stone, cholelithiasis, intrahepatic narrowing duct( left and right) Plan, I agree with treatment plan, GI will do ERCP first, I will do laparoscopic cholecystectomy on next Tuesday or Tuesday, D/W benefits, risks and alternatives of the surgery, pt understood, she agrees with the plan, I answered all questions, Present on Admission?: Yes (2) Jaundice: ERCP Present on Admission?: Yes (3) RUQ abdominal pain: (4) Bile duct obstruction: (5) Cholelithiasis: laparoscopic cholecystectomy History of Present Illness Attending Physician: Reason for Consultation: RUQ abdominal pain, Abnormal LFT's, gallstone Attending Physician: Rita Mckinnon, DO History of Present Illness Magali Pulido presented to the ER last night with a 1 week history of RUQ abdominal pain, nausea and vomiting. She states that she has had worsening symptoms over the past week, but did have symptoms over the past few months intermittently. She states that her RUQ abdominal pain increased to 9/10 in intensity, non-radiating, associated with severe nausea, worsened with eating with no alleviating factors. She presented to the ER last night, and was noted to have significant elevations of AST, ALT and bilirubin and her WBC count. A RUQ US showed biliary ductal dilation as was as mild intrahepatic ductal dilation as well as cholelithiasis. She was subsequently admitted, kept NPO, and started on IV Abx. She did undergo an MRCP today, and was found to have intra and extrahepatic ductal dilation with narrowing at right and left intrahepatic ducts. ERCP was recommended for further evaluation. At present she is afebrile, her pain has decreased to 3/10 in intensity, and her WBC count has decreased to normal overnight, following IV abx administration. She denies any current fevers, chills, nausea, vomiting, hematemesis, melena, hematochezia, diarrhea or other complaints. I ( Kianna Corbett MD ) got a call for consult RUQ pain, abnormal LFT's and gallstone. I reviewed pt's H/P labs, CT scan, U/S study, MRCP with pt. pt feels better now, pain is 2/10, no nausea, no vomiting, no fever. otherwise pt is healthy. Allergies Allergy/AdvReac Type Severity Reaction Status Date / Time Sulfa (Sulfonamide Allergy Unknown Unknown Verified 03/23/19 20:24 Antibiotics) Home Medications Home Medications Medication Instructions Recorded Confirmed Type multivitamin 1 tab PO DAILY 03/23/19 03/23/19 History Patient History Medical History Depression Surgical History History of delivery Social History Preferred Language: Uzbek Communication Ability: Effective Integration Developer Required: No Beliefs That Will Affect Care: None Current Living Situation: Spouse Feels Safe at Home: Yes Smoking Status: Former smoker Hx Alcohol Use: Yes Hx Substance Use: No Review of Systems Constitutional: as per Subjective / HPI Eyes: as per Subjective / HPI Ear, Nose, Mouth, Throat: as per Subjective / HPI Respiratory: as per Subjective / HPI Cardiovascular: as per Subjective / HPI Gastrointestinal: + abdominal pain and + nausea Genitourinary: as per Subjective / HPI Musculoskeletal: as per Subjective / HPI Integumentary: as per Subjective / HPI Neurologic: as per Subjective / HPI Psychiatric: as per Subjective / HPI Endocrine: as per Subjective / HPI Hematologic / Lymphatic: as per Subjective / HPI Allergy / Immunological: as per Subjective / HPI Physical Exam Constitutional: WD/WN, vitals as above well developed and well nourished ENMT: external ear and nose normal, oropharynx normal Neck: trachea midline, no thyromegaly Respiratory: normal respiratory effort, lungs clear to auscultation normal respiratory effort Cardiovascular: RRR, no murmur, no edema Rate/Rhythm: regular rate and regular rhythm Heart Sounds: normal S1 and normal S2 Gastrointestinal (Abdomen): Percussion/Palpation: abdomen soft mild tenderness at RUQ, no rebound pain, Musculoskeletal: no cyanosis or clubbing, extremities motor strength 5/5 Skin: no rashes, warm and dry + jaundice Neurologic: awake Psychiatric: Orientation: alert and oriented x 3 Results & Data Vital Signs (Past 12 Hours) Vital Signs Temp Pulse Resp BP Pulse Ox 03/24/19 15:13 36.7 C 63 16 134/89 97 03/24/19 07:42 36.7 C 94 H 16 133/87 91 Laboratory Results Abnormal lab results 03/23/19 03/23/19 03/23/19 Range/Units 19:47 19:47 19:47 WBC 12.31 H (4.8-10.8) K/uL RBC (4.2-5.4) M/uL RDW Std Deviation 52.0 H (36.4-46.3) fL RDW Coeff of Dennys 14.9 H (11.5-14.5) % MPV 10.7 H (7.4-10.4) fL Immature Gran # (Auto) 0.03 H (0.00-0.02) K/uL Neut # (Auto) 10.49 H (1.4-6.5) K/uL Lymph # (Auto) 0.97 L (1.2-3.4) K/uL [place] # (Auto) 0.69 H (0.11-0.59) K/uL Anion Gap (3-11) BUN 6 L (7-18) mg/dl BUN/Creatinine Ratio 7.6 L (10-20) Glucose 108 H (70-99) mg/dl Total Bilirubin 2.5 H (0.2-1) mg/dl Direct Bilirubin 1.6 H (0-0.2) mg/dl AST 367 H (15-37) U/L ALT 306 H (12-78) U/L Albumin (3.4-5.0) gm/dl Urine Appearance Turbid A (Clear) Urine Ketones 1+ H (Negative) Urine Blood 2+ H (Negative) Urine Bilirubin 1+ H (Negative) Ur Leukocyte Esterase Trace H (Negative) Urine WBC (Auto) >30 H (0-5) /hpf U Epithel Cells (Auto) >30 H (0-5) /lpf Urine Bacteria (Auto) 1+ H (Negative) Urine Crystals Calcium Oxalate A (None Prsent) Calcium Oxalate Crystal Present A (None Prsent) 03/24/19 03/24/19 Range/Units 06:34 06:34 WBC (4.8-10.8) K/uL RBC 4.19 L (4.2-5.4) M/uL RDW Std Deviation 52.8 H (36.4-46.3) fL RDW Coeff of Dennys 15.0 H (11.5-14.5) % MPV 10.6 H (7.4-10.4) fL Immature Gran # (Auto) (0.00-0.02) K/uL Neut # (Auto) (1.4-6.5) K/uL Lymph # (Auto) 1.08 L (1.2-3.4) K/uL [place] # (Auto) (0.11-0.59) K/uL Anion Gap 2.0 L (3-11) BUN 5 L (7-18) mg/dl BUN/Creatinine Ratio 7.0 L (10-20) Glucose (70-99) mg/dl Total Bilirubin 3.5 H (0.2-1) mg/dl Direct Bilirubin (0-0.2) mg/dl AST 389 H (15-37) U/L ALT 379 H (12-78) U/L Albumin 3.2 L (3.4-5.0) gm/dl Urine Appearance (Clear) Urine Ketones (Negative) Urine Blood (Negative) Urine Bilirubin (Negative) Ur Leukocyte Esterase (Negative) Urine WBC (Auto) (0-5) /hpf U Epithel Cells (Auto) (0-5) /lpf Urine Bacteria (Auto) (Negative) Urine Crystals (None Prsent) Calcium Oxalate Crystal (None Prsent) Diagnostic Findings CHEST AND ABDOMEN 2 VIEWS HISTORY: Right upper quadrant pain. Epigastric pain. COMPARISON: Chest 05/16/2012. FINDINGS: The lungs are clear. The cardiomediastinal silhouette is top normal in size. There is no pneumoperitoneum or pneumatosis. The bowel gas pattern is unremarkable. No evidence for bowel obstruction. No renal or ureteral calculi. An intrauterine device is seen within the mid pelvis. IMPRESSION: No acute cardiopulmonary process. No evidence for bowel obstruction. ABDOMINAL ULTRASOUND, RIGHT UPPER QUADRANT HISTORY: Right upper quadrant pain.. COMPARISON: None. FINDINGS: Pancreas: The pancreatic tail is obscured by overlying bowel gas. The remaining portions of the pancreas are within normal limits. Liver: No hepatic masses. There is mild intrahepatic bile duct dilatation. Gallbladder: There is a punctate gallstone and a small amount of gallbladder sludge. No gallbladder wall thickening. The gallbladder appears slightly distended. CBD: Distended common bile duct measures up to 9 mm. Right kidney: No hydronephrosis. IMPRESSION: 1. Dilated common bile duct and mild intrahepatic bile duct dilatation. This raises the possibility of a distal common bile duct obstruction. ERCP or MRCP may help for further evaluation. 2. The gallbladder appears slightly distended. There is a punctate gallstone and a small amount of gallbladder sludge. No gallbladder wall thickening at this time. Study: MRCP HISTORY: Pain. Gallstones. FINDINGS: The liver shows uniform signal characteristics throughout. There is moderate intrahepatic biliary ductal distention. Pancreas appears uniform. Kidneys are negative for hydronephrosis. Gallbladder demonstrates several small gallstones. It may be a trace gallbladder sludge. Mild wall thickening of the gated distal gastric antrum is present. MRCP component of the examination demonstrates a focal annular narrowing of the origin of the right as well as left intrahepatic bile ducts. No well-defined filling defect within a distended common bile duct is present. Maximum common bile duct measurement is 1.0 cm. No significant upper abdominal adenopathy. IMPRESSION: 1. Several very small gallstones.. 2. Moderate distention of the common bile duct as well as intrahepatic ducts. 3. Moderate narrowing origin of the right as well as left intrahepatic bile duct. 4. No well-defined filling defects are seen. 5. ERCP is suggested to ascertain the etiology of the narrowing of the confluence of the right as well as left intrahepatic bile ducts.
[2019-03-24] MEDS: cefTRIAXone SODIUM 1,000 MG in DEXTROSE 5% 50 ML IV SCH (20:03)
[2019-03-24] MEDS: MoRPHine SULFATE 4 MG/ML 1 ML CARP\\VIAL IV PRN (21:39)
[2019-03-25] MEDS: SODIUM CHLORIDE 0.9% 1000ML 1,000 ML IV SCH (02:53)
[2019-03-25] MEDS: MoRPHine SULFATE 4 MG/ML 1 ML CARP\\VIAL IV PRN ×2 (05:46→21:12)
[2019-03-25] MEDS: metroNIDAZOLE 500 MG/100 ML BAG IV SCH ×3 (06:13→22:24)
[2019-03-25 06:37] LABS: Hematocrit (blood only) 40.3 % (37-47); Hemoglobin 13.2 g/dL (12.0-16.0); Mean Corpuscular Hemoglobin 32.3 pg (25-34); Mean Corpuscular Hgb Conc 32.8 g/dL (32-36); Mean Corpuscular Volume 98.5 fL (80-100); Mean Platelet Volume 10.4 fL (7.4-10.4); Platelet Count 242 K/uL (130-400); RDW Coefficient of Variation 15.1 % (11.5-14.5); RDW Standard Deviation 54.7 fL (36.4-46.3); Red Blood Count 4.09 M/uL (4.2-5.4); White Blood Count 6.73 K/uL (4.8-10.8)
[2019-03-25 07:10] LABS: Albumin Level 3.4 gm/dl (3.4-5.0); Calcium 8.6 mg/dl (8.5-10.1); Creatinine Clr Calc Pharmacy 107.1 ml/min; Est GFR (African American) 133.6; Est GFR (Non-African American) 115.3; Potassium 3.8 mmol/L (3.5-5.1)
[2019-03-25 07:15] LABS: Albumin Globulin Ratio 0.9 (0.9-2); Globulin 3.6 gm/dl (2.5-4.0)
[2019-03-25] MEDS: MULTIVITAMIN TAB PO SCH (07:57)
[2019-03-25] MEDS: ENOXAPARIN INJ 40 MG/0.4 ML SYR SQ SCH (07:57)
[2019-03-25] MEDS: PROMETHAZINE HCL 12.5 MG in SODIUM CHLORIDE 0.9% 50 ML IV PRN (08:31)
--- NOTE | 2019-03-25 08:48 | Surgery Progress Note ---
Date of Service pt feels better, no abdominal pain now, no nausea, no vomiting, March 25, 2019 Assessment & Plan (1) Abdominal pain: pt is a 33 year-old female who was admitted to hospital for 1 week history RUQ pain, abnormal LFT'S IMP: RUQ pain, abnormal LFT'S, possible CBD stone, cholelithiasis, intrahepatic narrowing duct( left and right) Plan, I agree with treatment plan, GI will do ERCP first, I will do laparoscopic cholecystectomy on next Tuesday or Tuesday, D/W benefits, risks and alternatives of the surgery, pt understood, she agrees with the plan, I answered all questions, 03/25/2019 8:45AM, Lft's better, schedule for laparoscopic appendectomy 10am 03/27/2019 pt agrees with the plan, (2) Jaundice: ERCP (3) RUQ abdominal pain: (4) Bile duct obstruction: (5) Cholelithiasis: laparoscopic cholecystectomy Subjective History of intermittent RUQ pains, never fully investigated per her report. Has a h/o anxiety which is currently uncontrolled under these circumstances. Reports that her pain was well managed with the morphine given overnight, but she is now feeling some abdominal swelling and pain return. She is not eating much because of the pain, but is hungry. She has been advanced to clear liquids. No BM yet. Otherwise doing well. Denies dysuria or back pain. Physical Exam Constitutional: WD/WN, vitals as above well developed and well nourished ENMT: external ear and nose normal, oropharynx normal Neck: trachea midline, no thyromegaly Respiratory: normal respiratory effort, lungs clear to auscultation normal respiratory effort Cardiovascular: RRR, no murmur, no edema Rate/Rhythm: regular rate and regular rhythm Heart Sounds: normal S1 and normal S2 Gastrointestinal (Abdomen): Percussion/Palpation: abdomen soft NT, ND, BS + Musculoskeletal: no cyanosis or clubbing, extremities motor strength 5/5 Skin: no rashes, warm and dry + jaundice Neurologic: awake Psychiatric: Orientation: alert and oriented x 3 Results & Data Vital Signs (Past 12 Hours) Vital Signs Temp Pulse Resp BP Pulse Ox 03/25/19 07:38 36.8 C 64 16 119/73 95 03/24/19 23:10 36.5 C 60 16 144/76 H 92 Laboratory Results Abnormal lab results 03/25/19 03/25/19 Range/Units 06:09 06:09 RBC 4.09 L (4.2-5.4) M/uL RDW Std Deviation 54.7 H (36.4-46.3) fL RDW Coeff of Dennys 15.1 H (11.5-14.5) % BUN 5 L (7-18) mg/dl BUN/Creatinine Ratio 7.0 L (10-20) Total Bilirubin 2.0 H (0.2-1) mg/dl AST 174 H (15-37) U/L ALT 330 H (12-78) U/L
--- NOTE | 2019-03-25 09:44 | Progress Note ---
Date of Service March 25, 2019 Subjective Please keep NPO after midnight for ERCP with me tomorrow afternoon. Results & Data Vital Signs (Past 12 Hours) Vital Signs Temp Pulse Resp BP Pulse Ox 03/25/19 07:38 36.8 C 64 16 119/73 95 03/24/19 23:10 36.5 C 60 16 144/76 H 92
[2019-03-25] MEDS: TRAMADOL HCL 50 MG TABLET PO PRN (14:51)
--- NOTE | 2019-03-25 19:18 | Hospitalist Progress Note ---
Date of Service March 25, 2019 Assessment & Plan (1) Bile duct obstruction: MRCP positive for biliary stones. EUS/ERCP planned tomorrow per GI. Gen Surg plans for lap gill this admission. Cont pain control and antiemetics as needed. Cont Ceftriaxone/Flagyl. Blood cultures ordered with h/o chills currently negative. (2) Jaundice: resolved. ERCP will be definitive treatment. (3) Elevated liver enzymes: 2/2 obstructive process. ERCP/EUS as above. Cont to monitor. (4) Anxiety: h/o Prozac use, but off 2/2 insurance loss. Used Ativan with success in t he past. Will cont this now PRN. (5) DVT prophylaxis: Lovenox Full Code Dispo-to home when medically stable. Requires cholecystectomy prior to discharge. Rita [facility]ckinnon [facility] Subject[facility] feeling well today tolerating clears pain improved denies nausea or vomiting awaiting procedure in am and subsequent lap gill planned this admission. Review of Systems Review of Systems: All systems reviewed & are unremarkable except as noted in HPI & below Physical Exam Physical Exam: CONSTITUTIONAL: WNWD, vitals as above, generally well- appearing EYES: normal conjunctivae, no scleral icterus ENT: MMM RESPIRATORY: clear to auscultation bilaterally, no crackles, rales or wheezes, normal respiratory effort CARDIOVASCULAR: regular rate and rhythm, S1 and 2 heard without murmurs, gallops or rubs, no JVD, no peripheral edema GASTROINTESTINAL: normal bowel sounds, soft, nontender, nondistended MUSCULOSKELETAL: strength 5/5 throughout, head is normocephalic and atraumatic SKIN: warm and dry, +tattooes NEUROLOGIC: CN 2-12 grossly intact, no sensory deficit, normal cognition, normal speech, no gross focal deficits. PSYCHIATRIC: alert cooperative and oriented to person, place and time. Results & Data Vital Signs (Past 12 Hours) Vital Signs Temp Pulse Resp BP Pulse Ox 03/25/19 15:10 37.0 C 56 L 16 131/86 97 03/25/19 07:38 36.8 C 64 16 119/73 95 Laboratory Results Short CBC 03/25/19 Range/Units 06:09 WBC 6.73 (4.8-10.8) K/uL Hgb 13.2 (12.0-16.0) g/dL Hct 40.3 (37-47) % Plt Count 242 (130-400) K/uL BMP 03/25/19 06:09 Sodium 139 Potassium 3.8 Chloride 106 Carbon Dioxide 25 BUN 5 L Creatinine 0.66 Glucose 77 Calcium 8.6 Liver Function 03/25/19 Range/Units 06:09 Total Bilirubin 2.0 H (0.2-1) mg/dl AST 174 H (15-37) U/L ALT 330 H (12-78) U/L Alkaline Phosphatase 99 (45-117) U/L Albumin 3.4 (3.4-5.0) gm/dl Medications Administered Current Inpatient Medications Acetaminophen (Tylenol) 325 mg PO Q6H PRN PRN Reason: pain/fever Stop: 04/22/19 23:28 Last Admin: 03/24/19 10:11 Dose: 325 mg Documented by: Enoxaparin Sodium (Lovenox) 40 mg SQ QAM [facility] Stop: 04/23/19 08:59 Last Admin: 03/25/19 07:57 Dose: 40 mg Documented by: Promethazine HCl 12.5 mg/ (Sodium Chloride) 50.5 mls @ 202 mls/hr IV Q6H PRN PRN Reason: Nausea And Vomiting Stop: 04/22/19 23:28 Last Infusion: 03/25/19 08:49 Dose: Infused Documented by: Ceftriaxone Sodium 1,000 mg/ (Dextrose) 50 mls @ 100 mls/hr IV Q24H [facility]; Protocol Stop: 04/03/19 19:59 Last Infusion: 03/24/19 21:35 Dose: Infused Documented by: Metronidazole (Flagyl) 500 mg in 100 mls @ 100 mls/hr IV Q8H [facility] Stop: 04/03/19 14:59 Last Infusion: 03/25/19 15:59 Dose: Infused Documented by: Lorazepam (Ativan) 0.5 mg PO Q8H PRN PRN Reason: Anxiety Stop: 04/23/19 15:48 Morphine Sulfate (Morphine Sulfate) 4 mg IV Q4H PRN PRN Reason: Pain Stop: 04/06/19 23:28 Last Admin: 03/25/19 05:46 Dose: 4 mg Documented by: Multivitamins (Multivitamin Tab) 1 tab PO DAILY [facility] Stop: 04/23/19 08:59 Last Admin: 03/25/19 07:57 Dose: 1 tab Documented by: Tramadol HCl (Ultram) 25 - 50 mg PO Q4H PRN PRN Reason: Pain Stop: 04/22/19 23:28 Last Admin: 03/25/19 14:51 Dose: 50 mg Documented by:
[2019-03-25] MEDS: cefTRIAXone SODIUM 1,000 MG in DEXTROSE 5% 50 ML IV SCH (20:40)
[2019-03-25] MEDS: D5W AND LACTATED RINGERS 1,000 ML IV SCH (23:32)
[2019-03-26] MEDS: metroNIDAZOLE 500 MG/100 ML BAG IV SCH ×2 (05:39→19:03)
[2019-03-26 06:44] LABS: INR 1.2 (0.9-1.1); Prothrombin Time 12.2 Seconds (9.0-12.0)
[2019-03-26] MEDS: MULTIVITAMIN TAB PO SCH (08:06)
[2019-03-26] MEDS: ENOXAPARIN INJ 40 MG/0.4 ML SYR SQ SCH (08:07)
[2019-03-26] MEDS ORDERED: INDOMETHACIN 50 MG SUPP PR SCH (08:30)
--- NOTE | 2019-03-26 10:23 | Gastroenterology Progress Note ---
Date of Service March 26, 2019 Assessment & Plan (1) Abdominal pain: (2) Cholelithiasis: (3) Bile duct obstruction: (4) Elevated liver enzymes: Pt is a 33 y/o female w RUQ abd pain, elevated LFTs, noted to have cholelithiasis, dilated CBD and narrowing of L intrahepatic bile duct on imaging studies. - Keep NPO for ERCP by Dr. Allen today - Send Indomethacin 100mg IN to OR holding to be given pre ERCP - Lap gill scheduled for 03/27/19 - Continue IVF and antibx support Supervising Physician Co-Signing Physician Notes I performed a history and physical examination of the patient, including specifically on physical exam - soft, nontender abdomen. I have discussed the patient's management with Florencia. Please refer to the nurse practitioner's note for the documented findings and plan of care. ERCP today and Lap gill tomorrow. i explained risk of pancreatitis, patient understood. Subjective Pt denies any fever, chills, jaundice, bowel habit changes. Less abd pain, no n/v LFTs decreasing, lipase normal. Review of Systems Review of Systems: All systems reviewed & are unremarkable except as noted in HPI & below Physical Exam Constitutional: WD/WN, vitals as above well groomed, cooperative and comfortable Eyes: PERRL, conjunctivae normal, anicteric sclerae ENMT: external ear and nose normal, oropharynx normal Respiratory: normal respiratory effort, lungs clear to auscultation Cardiovascular: RRR, no murmur, no edema Gastrointestinal (Abdomen): normal bowel sounds, soft, nontender, no hepatosplenomegaly Skin: no rashes, warm and dry no jaundice Psychiatric: A+Ox3, euthymic affect Lymphatic: no lymphedema Results & Data Vital Signs (Past 12 Hours) Vital Signs Temp Pulse Resp BP Pulse Ox 03/26/19 07:01 36.7 C 56 L 19 127/73 96 03/25/19 23:27 36.6 C 67 16 127/77 96 Laboratory Results Laboratory Results - last 24 hr 03/26/19 05:44 PT 12.2 H INR 1.2 H
--- NOTE | 2019-03-26 11:00 | Surgery Progress Note ---
Date of Service doing better, no abdominal pain, no nausea, no vomiting, March 26, 2019 Assessment & Plan (1) Abdominal pain: pt is a 33 year-old female who was admitted to hospital for 1 week history RUQ pain, abnormal LFT'S IMP: RUQ pain, abnormal LFT'S, possible CBD stone, cholelithiasis, intrahepatic narrowing duct( left and right) Plan, I agree with treatment plan, GI will do ERCP first, I will do laparoscopic cholecystectomy on next Tuesday or Tuesday, D/W benefits, risks and alternatives of the surgery, pt understood, she agrees with the plan, I answered all questions, 03/25/2019 8:45AM, Lft's better, schedule for laparoscopic appendectomy 10am 03/27/2019 pt agrees with the plan, 03/26/2019 10 : 58AM doing fine, ERCP today, laparoscopic cholecystectomy , possible open or cholangiogram tomorrow, D/W benefits, risks and alternatives of the surgery, the risks - infection, bleeding, injury CBD, pt understood, she agrees with the surgery, I answered all questions, (2) Jaundice: ERCP (3) RUQ abdominal pain: (4) Bile duct obstruction: (5) Cholelithiasis: laparoscopic cholecystectomy Subjective feeling well today tolerating clears pain improved denies nausea or vomiting awaiting procedure in am and subsequent david garland planned this admission. Physical Exam Constitutional: WD/WN, vitals as above well developed and well nourished ENMT: external ear and nose normal, oropharynx normal Neck: trachea midline, no thyromegaly Respiratory: normal respiratory effort, lungs clear to auscultation normal respiratory effort Cardiovascular: RRR, no murmur, no edema Rate/Rhythm: regular rate and regular rhythm Heart Sounds: normal S1 and normal S2 Gastrointestinal (Abdomen): Percussion/Palpation: abdomen soft Musculoskeletal: no cyanosis or clubbing, extremities motor strength 5/5 Skin: no rashes, warm and dry + jaundice Neurologic: awake Psychiatric: Orientation: alert and oriented x 3 Results & Data Vital Signs (Past 12 Hours) Vital Signs Temp Pulse Resp BP Pulse Ox 03/26/19 07:01 36.7 C 56 L 19 127/73 96 03/25/19 23:27 36.6 C 67 16 127/77 96
[2019-03-26] MEDS ORDERED: SUCCINYLCHOLINE CHLORIDE 20 MG/ML 10 ML VIAL ONE (12:21)
[2019-03-26] MEDS ORDERED: LIDOCAINE HCL 2% 2 ML VIAL/AMP(20MG/ML) INFIL ONE (12:21)
[2019-03-26] MEDS ORDERED: PROPOFOL IV EMULSION 10 MG/ML 20 ML VIAL IV ONE (12:21)
[2019-03-26] MEDS ORDERED: fentaNYL citrate 100 MCG/2 ML VIAL ONE ×2 (12:22→15:54)
[2019-03-26] MEDS ORDERED: MIDAZOLAM HCL 1 MG/ML 2ML VIAL ONE (12:22)
--- NOTE | 2019-03-26 12:47 | Anesthesiology Consultation ---
Date of Service March 26, 2019 Assessment & Plan (1) Encounter for pre-operative examination: Chart Review Chart Review: Acceptable Risk for Surgery and Patient NOT seen in Pre Admission Testing Consults Requested none History Surgery Operation Date: 03/26/19 07:00 Proposed Procedures p Endoscopic Retrograde Cholangiopancreatogram - Odin Allen MD Operation Date: 03/27/19 10:00 Proposed Procedures p Laparoscopic Cholecystectomy - Kianna Corbett MD Height/Weight Height: 5 ft Weight: 73 kg Allergies Allergy/AdvReac Type Severity Reaction Status Date / Time Sulfa (Sulfonamide Allergy Unknown Unknown Verified 03/23/19 20:24 Antibiotics) Medications Home Medications Medication Instructions Recorded Confirmed Last Taken multivitamin 1 tab PO DAILY 03/23/19 03/23/19 Unknown Active Medications Generic Name Dose Route Start Last Admin Trade Name Freq PRN Reason Stop Dose Admin Acetaminophen 325 mg 03/23/19 23:29 03/24/19 10:11 Tylenol PO 04/22/19 23:28 325 mg Q6H PRN Administration pain/fever Enoxaparin Sodium 40 mg 03/24/19 09:00 03/26/19 08:07 Lovenox SQ 04/23/19 08:59 40 mg QAM JERICA Administration Promethazine HCl 12.5 mg/ 50.5 mls @ 202 mls/hr 03/23/19 23:29 03/25/19 08:49 Sodium Chloride IV 04/22/19 23:28 Infused Q6H PRN Infusion Nausea And Vomiting Ceftriaxone Sodium 1,000 mg/ 50 mls @ 100 mls/hr 03/24/19 20:00 03/25/19 21:18 Dextrose IV 04/03/19 19:59 Infused Q24H JERICA Infusion Protocol Metronidazole 500 mg in 100 mls @ 100 mls/hr 03/24/19 15:00 03/26/19 07:06 Flagyl IV 04/03/19 14:59 Infused Q8H JERICA Infusion Dextrose/Lactated Ringer's 1,000 mls @ 50 mls/hr 03/26/19 00:00 03/26/19 12:36 D5w And Lactated Ringers IV 04/25/19 00:00 0 mls/hr .Q20H JERICA Infusion Morphine Sulfate 4 mg 03/23/19 23:29 03/25/19 21:12 Morphine Sulfate IV 04/06/19 23:28 4 mg Q4H PRN Administration Pain Multivitamins 1 tab 03/24/19 09:00 03/26/19 08:06 Multivitamin Tab PO 04/23/19 08:59 1 tab DAILY JERICA Administration Tramadol HCl 25 - 50 mg 03/23/19 23:29 03/25/19 14:51 Ultram PO 04/22/19 23:28 50 mg Q4H PRN Administration Pain Past Medical History Medical History Depression Past Surgical History Surgical History History of delivery Social History Smoking Status: Former smoker Hx Alcohol Use: Yes alcohol intake frequency: holidays/special occasions only Hx Substance Use: No Physical Exam Vital Signs Last Vital Signs Temp 36.7 C 03/26/19 07:01 Pulse 56 L 03/26/19 07:01 Resp 19 03/26/19 07:01 BP 127/73 03/26/19 07:01 Pulse Ox 96 03/26/19 07:01 Testing Laboratory Results 03/25/19 06:09 03/25/19 06:09 PT 12.2 Seconds (9.0-12.0) H 03/26/19 05:44 INR 1.2 (0.9-1.1) H 03/26/19 05:44 Urine Color Dark Yellow 03/23/19 19:47 Urine Appearance Turbid (Clear) A 03/23/19 19:47 Urine pH 7.5 (4.5-7.5) 03/23/19 19:47 Ur Specific [place] 1.019 (1.000-1.030) 03/23/19 19:47 Urine Protein Negative (Negative) 03/23/19 19:47 Urine Glucose (UA) Negative (Negative) 03/23/19 19:47 Urine Ketones 1+ (Negative) H 03/23/19 19:47 Urine Nitrite Negative (Negative) 03/23/19 19:47 Ur Leukocyte Esterase Trace (Negative) H 03/23/19 19:47 Urine WBC (Auto) >30 /hpf (0-5) H 03/23/19 19:47 Urine RBC (Auto) 0-4 /hpf (0-4) 03/23/19 19:47 U Hyaline Cast (Auto) 1-5 /lpf (0-5) 03/23/19 19:47 U Epithel Cells (Auto) >30 /lpf (0-5) H 03/23/19 19:47 Urine Bacteria (Auto) 1+ (Negative) H 03/23/19 19:47 03/24/19 16:05 Aerobic Blood Culture - Preliminary Blood No growth in Aerobic bottle after 24 hours. Anaerobic Blood Culture - Final 03/24/19 16:05 Aerobic Blood Culture - Preliminary Blood No growth in Aerobic bottle after 24 hours. Anaerobic Blood Culture - Preliminary No growth in Anaerobic bottle after 24 hours. 03/23/19 19:47 Urine Culture - Final Urine,Clean Catch Gardnerella-like bacilli 03/23/19 19:29 POC Ur Test NEG
[2019-03-26] MEDS ORDERED: HYDROmorphone INJ 2 MG/ML SYR/VIAL IV PRN (14:03)
[2019-03-26] MEDS ORDERED: ATROPINE SULFATE 0.1 MG/ML 10ML SYR IV PRN (14:03)
[2019-03-26] MEDS ORDERED: ePHEDrine sulfate 50 MG/ML AMP IV PRN (14:03)
[2019-03-26] MEDS ORDERED: PROMETHAZINE HCL 12.5 MG in SODIUM CHLORIDE 0.9% 50 ML IV PRN (14:03)
[2019-03-26] MEDS ORDERED: ONDANSETRON INJ 2 MG/ML 2 ML VIAL IV PRN (14:03)
[2019-03-26] MEDS ORDERED: SCOPOLAMINE 1.5 MG TDSY TD ONE (14:03)
[2019-03-26] MEDS ORDERED: SCOPOLAMINE 1.5 MG TDSY ONE (14:07)
--- NOTE | 2019-03-26 14:55 | History & Physical Bridge Note ---
Date of Service March 26, 2019 History & Physical Bridge Note I have examined the patient, reviewed the History & Physical and in the interval since the performance of the History & Physical I have noted the following changes of clinical significance: no changes noted
--- NOTE | 2019-03-26 16:11 | Operative Report ---
Post Operative Report Pre & Post Diagnosis Operation Date: 03/26/19 07:00 Pre-Op Diagnosis: jaundice Post-Op Diagnosis: common bile duct stone and papillary stenosis Operation Date: 03/27/19 10:00 <No data on this case meets the specified criteria> I identified the patient and participated in the time-out.: Yes Procedure Operation Date: 03/26/19 07:00 Actual Procedures p Endoscopic Retrograde Cholangiopancreatogram(Not Applicable) - Odin Allen MD Operation Date: 03/27/19 10:00 <No data on this case meets the specified criteria> Surgeon Odin Allen MD Equipment Processer Storage None Estimated Blood Loss 0 Findings See Below (CBD stone and biliary papillary stenosis, CBD and PD stents placed.) Specimens CBD cytology by brushing Description of Procedure ERCP I attest to the content of the Intraoperative Record and any orders documented therein. Any exceptions are noted below.
[2019-03-26] MEDS: fentaNYL citrate 100 MCG/2 ML VIAL IV PRN ×2 (16:24→16:29)
[2019-03-26] MEDS ORDERED: GLUCAGON FOR INJ 1 MG VIAL ONE (16:39)
--- NOTE | 2019-03-26 16:46 | Anesthesiology Progress Note ---
Date of Service March 26, 2019 Anesthesia Post Procedure Vital Signs Vital Signs: Temp Pulse Pulse Resp BP Pulse Ox 03/26/19 16:35 73 16 127/94 96 03/26/19 16:25 72 14 136/78 98 03/26/19 16:19 36.0 C L 89 14 141/84 H 98 03/26/19 13:42 36.9 C 67 20 135/90 98 03/26/19 07:01 36.7 C 56 L 19 127/73 96 03/25/19 23:27 36.6 C 67 16 127/77 96 Pain Intensity Abdomen: Pain Intensity: 4 Transfer of Care Handoff Completed per policy Notes Mental Status: alert / awake / arousable Patient Amnestic to Procedure: Yes Nausea / Vomiting: adequately controlled Pain: adequately controlled Airway Patency, RR, SpO2: stable & adequate BP & HR: stable & adequate Hydration State: stable & adequate Anesthetic Complications: no major complications apparent Notes: Patient has some minor swelling and discomfort at center of upper lip. No skin breakage. Laryngoscopy was observed by me and was atraumatic. Suspect that this is from the bite block placed after induction for ERCP. Vaseline was applied to the lip prior to pacu discharge.
--- NOTE | 2019-03-26 16:47 | GI REPORT ---
Patient Name: Magali Pulido Procedure Date: 03/26/2019 2:48 PM Date of : 1985 Admit Type: Inpatient Age: 33 Gender: Female Attending MD: Odin Allen MD Procedure: ERCP Providers: Odin Allen MD Referring MD: Rita Mckinnon Do, Chunjie Yang, . Md Indications: Abdominal pain of suspected biliary origin, Abnormal MRCP, Evaluation and possible treatment of bile duct stone(s), Jaundice, Elevated liver enzymes Medicines: General Anesthesia Complications: No immediate complications. Estimated Blood Loss: Estimated blood loss: none. Procedure: Pre-Anesthesia Assessment: - Prior to the procedure, a History and Physical was performed, and patient medications, allergies and sensitivities were reviewed. The patient's tolerance of previous anesthesia was reviewed. - The risks and benefits of the procedure and the sedation options and risks were discussed with the patient. All questions were answered and informed consent was obtained. - Patient identification and proposed procedure were verified prior to the procedure by the physician and the nurse. The procedure was verified in the procedure room. - Pre-procedure physical examination revealed no contraindications to sedation. After obtaining informed consent, the scope was passed under direct vision. Throughout the procedure, the patient's blood pressure, pulse, and oxygen saturations were monitored continuously. The Scope was introduced through the mouth, and advanced to the duodenum and used to inject contrast into the bile duct and ventral pancreatic duct. The ERCP was accomplished without difficulty. The patient tolerated the procedure well. Findings: The jig boring machine set up operator film was normal. The esophagus was successfully intubated under direct vision. The scope was advanced to a normal major papilla in the descending duodenum without detailed examination of the pharynx, larynx and associated structures, and upper GI tract. The upper GI tract was grossly normal. The major papilla contained a benign appearing stenosis. The ventral pancreatic duct was inadvertently cannulated with the Fusion OMNI sphincterotome without any complications. The guidewire was kept in place to assist in biliary cannulation and place a prophylcatic PD stent. A 0.035 inch straight standard wire was passed into the biliary tree. The Fusion OMNI sphincterotome was passed over the guidewire and the bile duct was then deeply cannulated. Contrast was injected. I personally interpreted the bile duct images. Ductal flow of contrast was adequate. Image quality was adequate. Contrast extended to the main bile duct. The main bile duct was moderately dilated. The largest diameter was 9 mm. The biliary orifice was stenotic. This appeared benign. The left and right main hepatic ducts were normal with no evidence of stenosis. There is a short common biliary/pancreatic channel and there was an inadvertant opacification of the pancreatic duct which was normal. Biliary sphincterotomy was made with a monofilament traction (standard) sphincterotome using ERBE electrocautery. There was no post-sphincterotomy bleeding. Cells for cytology were obtained by brushing in the lower third of the main bile duct. The biliary tree was swept with an 8.5 mm balloon starting at the bifurcation. One stone was removed. No stones remained. One 5 Fr by 9 cm plastic pancreatic stent with a single external pigtail and no internal flaps was placed into the ventral pancreatic duct. Clear fluid flowed through the stent. The stent was in good position. One 8 mm by 8 cm covered metal biliary stent was placed into the common bile duct to allow for remodeling of the stenosis. Bile flowed through the stent. The stent was in good position. Indomethacin 100 mg was given via suppository to decrease the risk of post-ERCP pancreatitis (PEP). Verification of patient identification for the specimen was done by the physician and nurse using the patient's name and date. Impression: - Benign biliary papillary stenosis. Cells for cytology obtained. - The entire main bile duct was moderately dilated. - Choledocholithiasis was found. Complete removal was accomplished by biliary sphincterotomy and balloon extraction. - One plastic pancreatic stent was placed into the ventral pancreatic duct. - One covered metal biliary stent was placed into the common bile duct for remodeling of the papillary stenosis. Recommendation: - [facility] care. - Avoid aspirin and nonsteroidal anti-inflammatory medicines for 5 days. - Proceed with Lap cholecystectomy. - Await cytology results. - Get a KUB in 3-4 weeks to check for spontaneous migration of the PD stent. - Repeat ERCP in 6 - 8 weeks to remove stent. Odin Allen MD 03/26/2019 4:47:09 PM This report has been signed electronically. Note Initiated On: 03/26/2019 2:48 PM Number of Addenda: 0 I attest to the content of the Intraoperative Record and orders documented therein, exceptions below {[id number]}
--- NOTE | 2019-03-26 17:07 | Fluoroscopy Report ---
[place] ERCP biliary ductal CLINICAL HISTORY: for ercp 03/26/19pain COMPARISON STUDY: MRCP 03/23/2019 FLUOROSCOPY TIME: 2 minutes 45 seconds NUMBER OF FLUOROSCOPIC IMAGES: 10 FINDINGS: Initial images demonstrate retrograde cannulation of the pancreatic duct. Pancreatic duct a ppears uniform. A small by cannulation of the common bile duct. Balloon insufflation followed by 3. The common duct. There is suggestion of slight degree of spasm of the left hepatic duct. No signif icant narrowing of the bifurcation is seen. No significant filling defects. IMPRESSION: Prominence of the biliary ductal system with no areas of persistent stenosis. Possible ir ritability/spasm of the left hepatic duct. ACT 112: Negative or not required by law. The above report was generated using voice recognition software. It may contain grammatical, syntax or spelling errors. Electronically signed by: Zhang Callejas M.D. 03/26/2019 5:06 PM
[2019-03-26] MEDS: MoRPHine SULFATE 4 MG/ML 1 ML CARP\\VIAL IV PRN ×2 (17:18→21:22)
[2019-03-26] MEDS: TRAMADOL HCL 50 MG TABLET PO PRN (18:30)
[2019-03-26] MEDS: D5W AND LACTATED RINGERS 1,000 ML IV SCH (19:03)
[2019-03-26] MEDS: CHECK SCOPOLAMINE PATCH PLACEMENT SCH ×2 (19:06→23:53)
--- NOTE | 2019-03-26 19:14 | Hospitalist Progress Note ---
Date of Service March 26, 2019 Assessment & Plan (1) Bile duct obstruction: MRCP positive for biliary stones. ERCP just completed with stent placement. Gen Surg plans for lap gill this admission. Cont pain control and antiemetics as needed. Cont Ceftriaxone/Flagyl. Blood cultures negative. Monitor epigatric pain issue closely for post- ERCP pancreatitis. (2) Jaundice: resolved. Treatment plan as above. (3) Elevated liver enzymes: 2/2 obstructive process. ERCP as above. Cont to monitor. (4) Anxiety: h/o Prozac use, but off 2/2 insurance loss. Used Ativan with success in the past. Will cont this now PRN. (5) DVT prophylaxis: Lovenox Full Code Dispo-to home when medically stable. Requires cholecystectomy prior to discharge. Rita Mckinnon DO [facility] Hospitalist Subjective Just seeing her post-op from ERCP. She is coming out of anesthesia and reporting generalized, dixon espigastric, abdominal pain. Injury to upper mid lip apparent from a bite block trauma reported by PACU personnel. Morphine given. at bedside. Review of Systems Review of Systems: All systems reviewed & are unremarkable except as noted in HPI & below Physical Exam Physical Exam: CONSTITUTIONAL: WNWD, vitals as above, moderate distress 2/2 abdominal pain. Coming out of anesthesia. EYES: normal conjunctivae, no scleral icterus ENT: MMM, truama to upper lip in the middle. Mild swelling and erythema but this doesn't extend to other parts of the lips and tongue is not swollen. RESPIRATORY: clear to auscultation bilaterally, no crackles, rales or wheezes, normal respiratory effort CARDIOVASCULAR: regular rate and rhythm, S1 and 2 heard without murmurs, gallops or rubs, no JVD, no peripheral edema GASTROINTESTINAL: soft, TTP in epigastric area. MUSCULOSKELETAL: strength 5/5 throughout, head is normocephalic and atraumatic SKIN: warm and dry NEUROLOGIC: CN 2-12 grossly intact, no sensory deficit, normal cognition, normal speech, no gross focal deficits. PSYCHIATRIC: alert cooperative and oriented to person, place and time. Results & Data Vital Signs (Past 12 Hours) Vital Signs Temp Pulse Pulse Pulse Resp BP Pulse Ox 03/26/19 19:07 36.6 C 68 16 128/79 93 03/26/19 18:04 36.5 C 72 18 127/77 96 01/06/20 17:28 36.5 C 76 20 127/85 97 03/26/19 17:07 36.8 C 74 16 146/86 H 95 03/26/19 16:55 36.4 C L 68 16 120/77 94 03/26/19 16:45 66 16 128/77 94 03/26/19 16:35 73 16 127/94 96 03/26/19 16:25 72 14 136/78 98 03/26/19 16:19 36.0 C L 89 14 141/84 H 98 03/26/19 13:42 36.9 C 67 20 135/90 98 Medications Administered Current Inpatient Medications Acetaminophen (Tylenol) 325 mg PO Q6H PRN PRN Reason: pain/fever Stop: 04/22/19 23:28 Last Admin: 03/24/19 10:11 Dose: 325 mg Documented by: Enoxaparin Sodium (Lovenox) 40 mg SQ QAM [facility] Stop: 04/23/19 08:59 Last Admin: 03/26/19 08:07 Dose: 40 mg Documented by: Promethazine HCl 12.5 mg/ (Sodium Chloride) 50.5 mls @ 202 mls/hr IV Q6H PRN PRN Reason: Nausea And Vomiting Stop: 04/22/19 23:28 Last Infusion: 03/25/19 08:49 Dose: Infused Documented by: Ceftriaxone Sodium 1,000 mg/ (Dextrose) 50 mls @ 100 mls/hr IV Q24H [facility]; Protocol Stop: 04/03/19 19:59 Last Infusion: 03/25/19 21:18 Dose: Infused Documented by: Metronidazole (Flagyl) 500 mg in 100 mls @ 100 mls/hr IV Q8H [facility] Stop: 04/03/19 14:59 Last Admin: 03/26/19 19:03 Dose: 100 mls/hr Documented by: Dextrose/Lactated Ringer's (D5w And Lactated Ringers) 1,000 mls @ 150 mls/hr IV .Q6H40M [facility] Stop: 04/25/19 00:00 Last Infusion: 03/26/19 19:13 Dose: 0 mls/hr Documented by: Lorazepam (Ativan) 0.5 mg PO Q8H PRN PRN Reason: Anxiety Stop: 04/23/19 15:48 Last Admin: 03/26/19 13:11 Dose: 0.5 mg Documented by: Miscellaneous (Check Scopolamine Patch Placement) 1 ea N/A QS [facility] Stop: 03/27/19 15:59 Last Admin: 03/26/19 19:06 Dose: 1 ea Documented by: Morphine Sulfate (Morphine Sulfate) 4 mg IV Q4H PRN PRN Reason: Pain Stop: 04/06/19 23:28 Last Admin: 03/26/19 17:18 Dose: 4 mg Documented by: Multivitamins (Multivitamin Tab) 1 tab PO DAILY [facility] Stop: 04/23/19 08:59 Last Admin: 03/26/19 08:06 Dose: 1 tab Documented by: Tramadol HCl (Ultram) 25 - 50 mg PO Q4H PRN PRN Reason: Pain Stop: 04/22/19 23:28 Last Admin: 03/26/19 18:30 Dose: 50 mg Documented by:
[2019-03-26] MEDS: cefTRIAXone SODIUM 1,000 MG in DEXTROSE 5% 50 ML IV SCH (20:18)
[2019-03-27] MEDS: MoRPHine SULFATE 4 MG/ML 1 ML CARP\\VIAL IV PRN ×3 (02:03→11:17)
[2019-03-27] MEDS: metroNIDAZOLE 500 MG/100 ML BAG IV SCH ×3 (02:06→19:03)
[2019-03-27] MEDS: D5W AND LACTATED RINGERS 1,000 ML IV SCH (04:37)
[2019-03-27] MEDS: PROMETHAZINE HCL 12.5 MG in SODIUM CHLORIDE 0.9% 50 ML IV PRN (05:28)
[2019-03-27] MEDS ORDERED: LIDOCAINE HCL 1% 20 ML VIAL ONE (06:43)
[2019-03-27] MEDS ORDERED: BUPIVACAINE 0.5 % 5 MG/1 ML MPF 30ML VIAL ONE (06:43)
[2019-03-27] MEDS ORDERED: BACITRACIN OINT 15 GM TUBE ONE (06:43)
[2019-03-27] MEDS ORDERED: CEFAZOLIN 2000MG 2,000 MG/15 ML SYR IV ONE (06:49)
--- NOTE | 2019-03-27 06:49 | History & Physical Bridge Note ---
Date of Service March 27, 2019 History & Physical Bridge Note I have examined the patient, reviewed the History & Physical and in the interval since the performance of the History & Physical I have noted the following changes of clinical significance: no changes noted Supervising Physician Co-Signing Physician Notes I performed a history and physical examination of the patient, including specifically on physical exam - soft, nontender abdomen. I have discussed the patient's management with Florencia. Please refer to the nurse practitioner's note for the documented findings and plan of care. ERCP today and Lap gill tomorrow. i explained risk of pancreatitis, patient understood.
[2019-03-27] MEDS ORDERED: fentaNYL citrate 100 MCG/2 ML VIAL ONE ×4 (06:50→08:46)
[2019-03-27] MEDS ORDERED: MIDAZOLAM HCL 1 MG/ML 2ML VIAL ONE (06:50)
--- NOTE | 2019-03-27 07:02 | Anesthesiology Consultation ---
Date of Service March 27, 2019 Assessment & Plan (1) Encounter for pre-operative examination: Chart Review Chart Review: Acceptable Risk for Surgery History Surgery Operation Date: 03/26/19 07:00 Proposed Procedures p Endoscopic Retrograde Cholangiopancreatogram - Odin Allen MD Operation Date: 03/27/19 07:00 Proposed Procedures p Laparoscopic Cholecystectomy - Kianna Corbett MD Height/Weight Height: 5 ft Weight: 73 kg Allergies Allergy/AdvReac Type Severity Reaction Status Date / Time Sulfa (Sulfonamide Allergy Unknown Unknown Verified 03/23/19 20:24 Antibiotics) Medications Home Medications Medication Instructions Recorded Confirmed Last Taken multivitamin 1 tab PO DAILY 03/23/19 03/23/19 Unknown Active Medications Generic Name Dose Route Start Last Admin Trade Name Freq PRN Reason Stop Dose Admin Acetaminophen 325 mg 03/23/19 23:29 03/24/19 10:11 Tylenol PO 04/22/19 23:28 325 mg Q6H PRN Administration pain/fever Enoxaparin Sodium 40 mg 03/24/19 09:00 03/26/19 08:07 Lovenox SQ 04/23/19 08:59 40 mg QAM JERICA Administration Promethazine HCl 12.5 mg/ 50.5 mls @ 202 mls/hr 03/23/19 23:29 03/27/19 05:47 Sodium Chloride IV 04/22/19 23:28 Infused Q6H PRN Infusion Nausea And Vomiting Ceftriaxone Sodium 1,000 mg/ 50 mls @ 100 mls/hr 03/24/19 20:00 03/26/19 20:48 Dextrose IV 04/03/19 19:59 Infused Q24H JERICA Infusion Protocol Metronidazole 500 mg in 100 mls @ 100 mls/hr 03/24/19 15:00 03/27/19 03:02 Flagyl IV 04/03/19 14:59 Infused Q8H [place] Infusion Dextrose/Lactated Ringer's 1,000 mls @ 150 mls/hr 03/26/19 00:00 03/27/19 04:37 D5w And Lactated Ringers IV 04/25/19 00:00 150 mls/hr .Q6H40M JERICA Administration Lorazepam 0.5 mg 03/24/19 15:49 03/26/19 13:11 Ativan PO 02/03/20 15:48 0.5 mg Q8H PRN Administration Anxiety Miscellaneous 1 ea 03/26/19 16:00 03/26/19 23:53 Check Scopolamine Patch Placement N/A 03/27/19 15:59 1 ea QS JERICA Administration Morphine Sulfate 4 mg 03/23/19 23:29 03/27/19 05:30 Morphine Sulfate IV 04/06/19 23:28 4 mg Q4H PRN Administration Pain Multivitamins 1 tab 03/24/19 09:00 03/26/19 08:06 Multivitamin Tab PO 04/23/19 08:59 1 tab DAILY JERICA Administration Tramadol HCl 25 - 50 mg 03/23/19 23:29 03/26/19 18:30 Ultram PO 04/22/19 23:28 50 mg Q4H PRN Administration Pain NPO Date Last Intake of Fluids: 03/25/19 Time Last Intake of Fluids: 17:20 Date Last Intake of Solids: 03/23/19 Time Last Intake of Solids: 15:00 Past Medical History Medical History Cholelithiasis Depression Elevated liver enzymes (Acute) Jaundice (Acute) Past Surgical History Surgical History History of delivery Past Anesthesia History No Hx of Anesthesia Complications History of PONV History of PONV Social History Smoking Status: Former smoker Hx Alcohol Use: Yes alcohol intake frequency: holidays/special occasions only Hx Substance Use: No Physical Exam Vital Signs Last Vital Signs Temp 36.6 C 03/27/19 06:46 Pulse 72 03/27/19 06:46 Resp 16 03/27/19 06:46 BP 145/85 H 03/27/19 06:46 Pulse Ox 96 03/27/19 06:46 Testing Laboratory Results 03/25/19 06:09 03/25/19 06:09 PT 12.2 Seconds (9.0-12.0) H 03/26/19 05:44 INR 1.2 (0.9-1.1) H 03/26/19 05:44 Urine Color Dark Yellow 03/23/19 19:47 Urine Appearance Turbid (Clear) A 03/23/19 19:47 Urine pH 7.5 (4.5-7.5) 03/23/19 19:47 Ur Specific [place] 1.019 (1.000-1.030) 03/23/19 19:47 Urine Protein Negative (Negative) 03/23/19 19:47 Urine Glucose (UA) Negative (Negative) 03/23/19 19:47 Urine Ketones 1+ (Negative) H 03/23/19 19:47 Urine Nitrite Negative (Negative) 03/23/19 19:47 Ur Leukocyte Esterase Trace (Negative) H 03/23/19 19:47 Urine WBC (Auto) >30 /hpf (0-5) H 03/23/19 19:47 Urine RBC (Auto) 0-4 /hpf (0-4) 03/23/19 19:47 U Hyaline Cast (Auto) 1-5 /lpf (0-5) 03/23/19 19:47 U Epithel Cells (Auto) >30 /lpf (0-5) H 03/23/19 19:47 Urine Bacteria (Auto) 1+ (Negative) H 03/23/19 19:47 03/24/19 16:05 Aerobic Blood Culture - Preliminary Blood No growth in Aerobic bottle after 48 hours. Anaerobic Blood Culture - Final 03/24/19 16:05 Aerobic Blood Culture - Preliminary Blood No growth in Aerobic bottle after 48 hours. Anaerobic Blood Culture - Preliminary No growth in Anaerobic bottle after 48 hours. 03/23/19 19:47 Urine Culture - Final Urine,Clean Catch Gardnerella-like bacilli 03/26/19 19:13 POC Glucose 135 H 03/23/19 19:29 POC Ur Test NEG
[2019-03-27] MEDS ORDERED: ATROPINE SULFATE 0.1 MG/ML 10ML SYR IV PRN (07:05)
[2019-03-27] MEDS ORDERED: LABETALOL HCL IV 5 MG/ML 20ML IV PRN (07:05)
[2019-03-27] MEDS ORDERED: HYDROmorphone INJ 1 MG/ML SYRINGE IV PRN (07:05)
[2019-03-27] MEDS ORDERED: KETOROLAC 30 MG/ML VIAL IV PRN (07:05)
[2019-03-27] MEDS ORDERED: ONDANSETRON INJ 2 MG/ML 2 ML VIAL IV PRN (07:05)
[2019-03-27] MEDS ORDERED: ONDANSETRON INJ 2 MG/ML 2 ML VIAL ONE (07:51)
[2019-03-27] MEDS ORDERED: GLYCOPYRROLATE 0.2 MG/ML VIAL ONE (07:51)
[2019-03-27] MEDS ORDERED: ROCURONIUM BROMIDE 10 MG/ML 5 ML VIAL ONE (07:51)
[2019-03-27] MEDS ORDERED: KETOROLAC 30 MG/ML VIAL ONE (07:51)
[2019-03-27] MEDS ORDERED: DEXAMETHASONE SOD INJ 4 MG/ML VIAL ONE (07:51)
[2019-03-27] MEDS ORDERED: LIDOCAINE HCL 2% 2 ML VIAL/AMP(20MG/ML) INFIL ONE (07:51)
[2019-03-27] MEDS ORDERED: NEOSTIGMINE METHYLSULFATE 5 MG/5 ML SYR ONE (07:51)
[2019-03-27] MEDS ORDERED: PROPOFOL IV EMULSION 10 MG/ML 20 ML VIAL IV ONE (07:51)
--- NOTE | 2019-03-27 08:15 | Post Operative Brief Note ---
Immediate Post Op Note v1 Date of Surgery March 27, 2019 Pre & Post Diagnosis Operation Date: 03/26/19 07:00 Pre-Op Diagnosis: jaundice Post-Op Diagnosis: common bile duct stone and papillary stenosis Operation Date: 03/27/19 07:00 Pre-Op Diagnosis: Cholelithiasis Post-Op Diagnosis: Cholelithiasis I identified the patient and participated in the time-out.: Yes Procedure Operation Date: 03/26/19 07:00 Actual Procedures p Endoscopic Retrograde Cholangiopancreatogram(Not Applicable) - Odin Allen MD Operation Date: 03/27/19 07:00 Actual Procedures p Laparoscopic Cholecystectomy(Not Applicable) - Kianna Corbett MD Surgeon Kianna Corbett MD [facility] And M Supervisor LORI Harp Estimated Blood Loss 10 Findings Consistent with Post-Op Diagnosis Fluids 1200ml Specimens gallbladder Anesthesia Type General Complications none Disposition Accompanied Patient To Recovery: Yes Disposition: Recovery Room Overlapping Procedure I was immediately available: during the entire case.
[2019-03-27] MEDS: CHECK SCOPOLAMINE PATCH PLACEMENT SCH (08:16)
[2019-03-27] MEDS: MULTIVITAMIN TAB PO SCH (08:16)
[2019-03-27] MEDS: fentaNYL citrate 100 MCG/2 ML VIAL IV PRN ×2 (08:51→08:56)
[2019-03-27] MEDS ORDERED: OXYCODONE/ACETAMINOPHEN 5mg/325mg TAB PO PRN (09:15)
[2019-03-27] MEDS ORDERED: LACTATED RINGER'S 1,000 ML IV SCH (09:15)
[2019-03-27 10:30] LABS: Hematocrit (blood only) 40.9 % (37-47); Hemoglobin 13.9 g/dL (12.0-16.0); Mean Corpuscular Volume 94.2 fL (80-100); Mean Platelet Volume 10.8 fL (7.4-10.4); Platelet Count 246 K/uL (130-400); RDW Coefficient of Variation 14.6 % (11.5-14.5); RDW Standard Deviation 50.2 fL (36.4-46.3); Red Blood Count 4.34 M/uL (4.2-5.4); White Blood Count 21.23 K/uL (4.8-10.8)
[2019-03-27 10:58] LABS: Immature Granulocytes # (auto) 0.05 K/uL (0.00-0.02); Immature Granulocytes % (auto) 0.2 %; Lymphocytes # (auto) 0.51 K/uL (1.2-3.4); Lymphocytes % (auto) 2.4 %; Monocytes # (auto) 0.49 K/uL (0.11-0.59); Monocytes % (auto) 2.3 %; Neutrophils # (auto) 20.18 K/uL (1.4-6.5); Neutrophils % (auto) 95.1 %
[2019-03-27 11:07] LABS: Albumin Level 3.4 gm/dl (3.4-5.0); BUN Creatinine Ratio 4.7 (10-20); Calcium 9.3 mg/dl (8.5-10.1); Est GFR (African American) 136.4; Est GFR (Non-African American) 117.6; Potassium 3.8 mmol/L (3.5-5.1)
--- NOTE | 2019-03-27 11:13 | Anesthesiology Progress Note ---
Date of Service March 27, 2019 Anesthesia Post Procedure Vital Signs Vital Signs: Temp Pulse Pulse Pulse Resp BP Pulse Ox 03/27/19 10:25 73 16 138/81 94 03/27/19 09:55 66 16 149/81 H 93 03/27/19 09:25 37.0 C 64 16 140/86 94 03/27/19 09:15 37.2 C 63 17 128/64 93 03/27/19 09:05 70 18 140/83 96 03/27/19 08:55 63 18 137/87 98 03/27/19 08:45 62 17 140/77 99 03/27/19 08:39 36.8 C 81 20 120/86 99 03/27/19 06:50 36.8 C 82 20 142/85 H 03/27/19 06:46 36.6 C 72 16 145/85 H 96 03/27/19 04:15 36.7 C 68 16 138/86 95 03/26/19 23:30 36.4 C L 65 16 117/71 95 03/26/19 20:12 36.8 C 73 16 126/77 95 03/26/19 19:07 36.6 C 68 16 128/79 93 03/26/19 18:04 36.5 C 72 18 127/77 96 03/26/19 17:28 36.5 C 76 20 127/85 97 03/26/19 17:07 36.8 C 74 16 146/86 H 95 03/26/19 16:55 36.4 C L 68 16 120/77 94 03/26/19 16:45 66 16 128/77 94 03/26/19 16:35 73 16 127/94 96 03/26/19 16:25 72 14 136/78 98 03/26/19 16:19 36.0 C L 89 14 141/84 H 98 03/26/19 13:42 36.9 C 67 20 135/90 98 Pain Intensity Abdomen: Pain Intensity: 2 Notes Mental Status: alert / awake / arousable and participated in evaluation Patient Amnestic to Procedure: Yes Nausea / Vomiting: adequately controlled Pain: adequately controlled Airway Patency, RR, SpO2: stable & adequate BP & HR: stable & adequate Hydration State: stable & adequate Anesthetic Complications: no major complications apparent
[2019-03-27 11:14] LABS: Bilirubin,Total 0.5 mg/dl (0.2-1); Globulin 3.5 gm/dl (2.5-4.0); Total Protein 6.9 gm/dl (6.4-8.2)
--- NOTE | 2019-03-27 11:19 | Gastroenterology Progress Note ---
Date of Service March 27, 2019 Assessment & Plan (1) Abdominal pain: (2) Cholelithiasis: (3) Bile duct obstruction: (4) Elevated liver enzymes: Pt is a 33 y/o female w RUQ abd pain, elevated LFTs, noted to have cholelithiasis, dilated CBD and narrowing of L intrahepatic bile duct on imaging studies. 03/26/19 ERCP: choledocholithiasis found, removed, sphincterectomy performed. Plastic pancreas stent and metal biliary stent placed. 03/27/19 Lap cholecystectomy - Avoid ASA and NSAIDs x 5 days - F/U cytology from ERCP - KUB in 3-4 week to check for PD stent location - Repeat ERCP in 6-8 weeks to remove stent. - F/U LFTs Attg add: I interviewed and examined pt, reviewed chart and labs. She is much improved, with improved LFT's. Diet as per surgery service. Recs as above. Please reconsult if needed. Subjective Pt had just returned to room from OR s/p lap cholecystectomy. She is c/o mild abd pain compared to last night. Denies any n/v. LFTs noted to be decreasing. Review of Systems Review of Systems: All systems reviewed & are unremarkable except as noted in HPI & below Physical Exam Constitutional: well groomed, cooperative and comfortable Eyes: PERRL, conjunctivae normal, anicteric sclerae ENMT: external ear and nose normal, oropharynx normal Respiratory: normal respiratory effort, lungs clear to auscultation Cardiovascular: RRR, no murmur, no edema Gastrointestinal (Abdomen): Inspection/Auscultation: + hypoactive bowel sounds Percussion/Palpation: + abdomen tender (at lap gill surgical sites) and abdomen soft Skin: no rashes, warm and dry no jaundice Psychiatric: A+Ox3, euthymic affect Lymphatic: no lymphedema Results & Data Vital Signs (Past 12 Hours) Vital Signs Temp Pulse Pulse Resp BP Pulse Ox 03/27/19 10:25 73 16 138/81 94 03/27/19 09:55 66 16 149/81 H 93 03/27/19 09:25 37.0 C 64 16 140/86 94 03/27/19 09:15 37.2 C 63 17 128/64 93 03/27/19 09:05 70 18 140/83 96 03/27/19 08:55 63 18 137/87 98 03/27/19 08:45 62 17 140/77 99 03/27/19 08:39 36.8 C 81 20 120/86 99 03/27/19 06:50 36.8 C 82 20 142/85 H 03/27/19 06:46 36.6 C 72 16 145/85 H 96 03/27/19 04:15 36.7 C 68 16 138/86 95 03/26/19 23:30 36.4 C L 65 16 117/71 95
--- NOTE | 2019-03-27 11:37 | Anesthesiology Progress Note ---
Date of Service March 27, 2019 Anesthesia Post Procedure Vital Signs Vital Signs: Temp Pulse Pulse Pulse Resp BP Pulse Ox 03/27/19 11:25 64 16 143/86 H 93 03/27/19 10:25 73 16 138/81 94 03/27/19 09:55 66 16 149/81 H 93 03/27/19 09:25 37.0 C 64 16 140/86 94 03/27/19 09:15 37.2 C 63 17 128/64 93 03/27/19 09:05 70 18 140/83 96 03/27/19 08:55 63 18 137/87 98 03/27/19 08:45 62 17 140/77 99 03/27/19 08:39 36.8 C 81 20 120/86 99 03/27/19 06:50 36.8 C 82 20 142/85 H 03/27/19 06:46 36.6 C 72 16 145/85 H 96 03/27/19 04:15 36.7 C 68 16 138/86 95 03/26/19 23:30 36.4 C L 65 16 117/71 95 03/26/19 20:12 36.8 C 73 16 126/77 95 03/26/19 19:07 36.6 C 68 16 128/79 93 03/26/19 18:04 36.5 C 72 18 127/77 96 03/26/19 17:28 36.5 C 76 20 127/85 97 03/26/19 17:07 36.8 C 74 16 146/86 H 95 03/26/19 16:55 36.4 C L 68 16 120/77 94 03/26/19 16:45 66 16 128/77 94 03/26/19 16:35 73 16 127/94 96 03/26/19 16:25 72 14 136/78 98 03/26/19 16:19 36.0 C L 89 14 141/84 H 98 03/26/19 13:42 36.9 C 67 20 135/90 98 Pain Intensity Abdomen: Pain Intensity: 2 Transfer of Care Handoff Completed per policy Notes Mental Status: alert / awake / arousable Patient Amnestic to Procedure: Yes Nausea / Vomiting: adequately controlled Pain: adequately controlled Airway Patency, RR, SpO2: stable & adequate BP & HR: stable & adequate Hydration State: stable & adequate Anesthetic Complications: no major complications apparent
--- NOTE | 2019-03-27 11:59 | Operative Report ---
DATE OF OPERATION: 03/27/2019 PREOPERATIVE DIAGNOSES: Cholelithiasis, cholecystitis. POSTOPERATIVE DIAGNOSES: Cholelithiasis, cholecystitis. OPERATIVE PROCEDURE: Laparoscopic cholecystectomy. SURGEON: Kianna Corbett MD. ANESTHESIA: General. ESTIMATED BLOOD LOSS: About 10 mL. FINDINGS: Cholelithiasis with cholecystitis. COMPLICATIONS: None. INDICATIONS FOR THE PROCEDURE: This is a 33-year-old female who presented with common bile duct stone with gallstone and the patient had ERCP yesterday and the patient is required to do laparoscopic cholecystectomy, possible open, possible cholangiogram today. I did talk to the patient about the benefits, risks, and alternate procedure. I indicated the risks may include but not limited to such as bleeding, infection, injury to common bile duct, injury to bowel, patient understands and she signed informed consent, I answered all questions. DETAILS OF PROCEDURE: We brought the patient to the OR, put the patient in supine position. The patient received SCD on bilateral legs to prevent DVT. Also, patient received 2 grams of Ancef IV for prophylactic antibiotic. The patient received general anesthesia without difficulties. The abdomen was prepped and draped in routine sterile fashion. After time out, I injected local anesthesia by using 1% lidocaine mixed with 0.5% Marcaine just above the umbilicus. Then, I made a small incision just above the umbilicus, opened fascia and opened peritoneum under direct vision, put a Rekha trocar in, connected to CO2 to create pneumoperitoneum, flow rate at 6 liters per minute, pressure not more than 14 mmHg. Once we got a nice pneumoperitoneum, we put a camera in, looked around the abdomen. It shows normal finding on the liver. However, the gallbladder shows cholecystitis and with some omental cover of the gallbladder and adhesion to gallbladder, the gallbladder wall thickening, edema confirming the diagnosis of acute cholecystitis. Then, we put another two 5 mm trocars in the right upper quadrant, one 11 trocar in the epigastric area. Once all trocars in, we put a grasper to hold the base of gallbladder, put in the direction to the diaphragm, another grasper to hold the pouch of gallbladder, put a lateral to expose the triangle of Calot. The cystic duct was identified and mobilized. Cystic duct was a little bit dilated, size of about 8 mm. I used 10 mm metal clips on the proximal cystic duct x2 and another clip on the distal cystic duct x1, then used a scissors for transection of the cystic duct. Rechecked and no bile leak, no active bleeding. The cystic artery was identified and mobilized. I put two 10 mm metal clips on the proximal cystic artery, one on the distal cystic artery, then used a scissors for transection of cystic artery. Rechecked, no active bleeding. Then, we took down the gallbladder from the liver bed by using Bovie. Rechecked and no active bleeding, no bile leak. Then, we removed gallbladder through the catch bag. Then, we reinserted the Rekha trocar in, connected to CO2 to create pneumoperitoneum, again looked around the abdomen, no active bleeding, no bile leak from the liver bed. Then, we removed all trocars under direct vision. No active bleeding from the trocar sites. Pneumoperitoneum was released. Then, I closed the umbilical incision, fascial layer by using #1 Vicryl [id number] x2, closed subcutaneous layer by using 2-0 Vicryl interruptedly, closed skin by using 4-0 Vicryl continuous running, closed the epigastric area, fascial layer by using #1 Vicryl [id number] x2, closed subcutaneous layer by using 2-0 Vicryl interruptedly, closed skin by using 4-0 Vicryl interruptedly, closed another two 5 mm trocar sites skin-only by using 4-0 Vicryl. Then, we put the dressing on. The patient tolerated the procedure well. All instrument, needle and sponge count were correct x2 at the end of the case. The patient was transferred to recovery room in stable condition. After the procedure, I did talk to the patient and family member about the OR finding and the procedure we did, they understand. The specimen was sent to pathology. I attest to the content of the Intraoperative Record and any orders documented therein. Any exception s are noted below.
[2019-03-27] MEDS: OXYCODONE/ACETAMINOPHEN 5mg/325mg TAB PO PRN ×2 (13:42→20:12)
[2019-03-27] MEDS: cefTRIAXone SODIUM 1,000 MG in DEXTROSE 5% 50 ML IV SCH (20:06)
--- NOTE | 2019-03-27 23:49 | Hospitalist Progress Note ---
Date of Service March 27, 2019 Assessment & Plan (1) Bile duct obstruction: MRCP positive for biliary stones. ERCP just completed with stent placement. s/p lap gill this am and recovering well. Cont pain control and antiemetics as needed. Cont Ceftriaxone/Flagyl. Blood cultures negative. Monitor epigatric pain issue closely for post- ERCP pancreatitis. (2) Jaundice: resolved. Treatment plan as above. (3) Elevated liver enzymes: 2/2 obstructive process. ERCP as above. Cont to monitor. (4) Anxiety: h/o Prozac use, but off 2/2 insurance loss. Used Ativan with success in the past. Will cont this now PRN. (5) DVT prophylaxis: Lovenox Full Code Dispo-to home when medically stable. Rita Mckinnon DO [facility] Hospitalist Subjective Improved after surgery Difficult night with pain after ERCP tolerating PO and asking for an advancement in her diet. Review of Systems Review of Systems: All systems reviewed & are unremarkable except as noted in HPI & below Physical Exam Physical Exam: CONSTITUTIONAL: WNWD, vitals as above, NAD. EYES: normal conjunctivae, no scleral icterus ENT: MMM, trauma to upper lip in the middle. Mild swelling with resolution of erythema. RESPIRATORY: clear to auscultation bilaterally, no crackles, rales or wheezes, normal respiratory effort CARDIOVASCULAR: regular rate and rhythm, S1 and 2 heard without murmurs, gallops or rubs, no JVD, no peripheral edema GASTROINTESTINAL: soft, multiple well healed incision sites that are closed, nondistended MUSCULOSKELETAL: strength 5/5 throughout, head is normocephalic and atraumatic SKIN: warm and dry NEUROLOGIC: CN 2-12 grossly intact, no sensory deficit, normal cognition, normal speech, no gross focal deficits. PSYCHIATRIC: alert cooperative and oriented to person, place and time. Results & Data Vital Signs (Past 12 Hours) Vital Signs Temp Pulse Resp BP Pulse Ox 03/27/19 21:04 37.1 C 79 16 130/77 94 03/27/19 15:11 36.9 C 79 16 143/82 H 94 03/27/19 12:25 91 H 16 137/79 93 Laboratory Results Short CBC 03/27/19 Range/Units 10:15 WBC 21.23 H (4.8-10.8) K/uL Hgb 13.9 (12.0-16.0) g/dL Hct 40.9 (37-47) % Plt Count 246 (130-400) K/uL BMP 03/27/19 10:15 Sodium 136 Potassium 3.8 Chloride 105 Carbon Dioxide 24 BUN 3 L Creatinine 0.62 Glucose 147 H Calcium 9.3 Liver Function 03/27/19 Range/Units 10:15 Total Bilirubin 0.5 (0.2-1) mg/dl AST 69 H (15-37) U/L ALT 185 H (12-78) U/L Alkaline Phosphatase 94 (45-117) U/L Albumin 3.4 (3.4-5.0) gm/dl Medications Administered Current Inpatient Medications Acetaminophen (Tylenol) 325 mg PO Q6H PRN PRN Reason: pain/fever Stop: 04/22/19 23:28 Last Admin: 03/24/19 10:11 Dose: 325 mg Documented by: Enoxaparin Sodium (Lovenox) 40 mg SQ QAM [facility] Stop: 04/23/19 08:59 Last Admin: 03/26/19 08:07 Dose: 40 mg Documented by: Promethazine HCl 12.5 mg/ (Sodium Chloride) 50.5 mls @ 202 mls/hr IV Q6H PRN PRN Reason: Nausea And Vomiting Stop: 04/22/19 23:28 Last Infusion: 03/27/19 05:47 Dose: Infused Documented by: Ceftriaxone Sodium 1,000 mg/ (Dextrose) 50 mls @ 100 mls/hr IV Q24H [facility]; Protocol Stop: 04/03/19 19:59 Last Infusion: 03/27/19 20:36 Dose: Infused Documented by: Metronidazole (Flagyl) 500 mg in 100 mls @ 100 mls/hr IV Q8H [facility] Stop: 04/03/19 14:59 Last Infusion: 03/27/19 20:13 Dose: Infused Documented by: Lorazepam (Ativan) 0.5 mg PO Q8H PRN PRN Reason: Anxiety Stop: 04/23/19 15:48 Last Admin: 03/26/19 13:11 Dose: 0.5 mg Documented by: Morphine Sulfate (Morphine Sulfate) 4 mg IV Q4H PRN PRN Reason: Pain Stop: 04/06/19 23:28 Last Admin: 03/27/19 11:17 Dose: 4 mg Documented by: Multivitamins (Multivitamin Tab) 1 tab PO DAILY JERICA Stop: 04/23/19 08:59 Last Admin: 03/27/19 08:16 Dose: Not Given Documented by: Oxycodone/Acetaminophen (Percocet 5mg/325mg) 1 tab PO Q4H PRN PRN Reason: Moderate Pain Stop: 04/10/19 09:14 Oxycodone/Acetaminophen (Percocet 5mg/325mg) 2 tab PO Q4H PRN PRN Reason: Severe Pain Stop: 04/10/19 09:14 Last Admin: 03/27/19 20:12 Dose: 2 tab Documented by: Tramadol HCl (Ultram) 25 - 50 mg PO Q4H PRN PRN Reason: Pain Stop: 04/22/19 23:28 Last Admin: 03/26/19 18:30 Dose: 50 mg Documented by:
[2019-03-28] MEDS: metroNIDAZOLE 500 MG/100 ML BAG IV SCH ×3 (02:18→11:32)
[2019-03-28] MEDS: MoRPHine SULFATE 4 MG/ML 1 ML CARP\\VIAL IV PRN ×2 (02:23→08:11)
[2019-03-28 06:47] LABS: Basophils # (auto) 0.01 K/uL (0-0.2); Basophils % (auto) 0.1 %; Hemoglobin 13.5 g/dL (12.0-16.0); Immature Granulocytes # (auto) 0.04 K/uL (0.00-0.02); Immature Granulocytes % (auto) 0.2 %; Lymphocytes # (auto) 1.83 K/uL (1.2-3.4); Lymphocytes % (auto) 10.6 %; Mean Corpuscular Hemoglobin 32.5 pg (25-34); Mean Corpuscular Hgb Conc 33.8 g/dL (32-36); Mean Corpuscular Volume 96.2 fL (80-100); Mean Platelet Volume 11.1 fL (7.4-10.4); Monocytes # (auto) 1.23 K/uL (0.11-0.59); Monocytes % (auto) 7.1 %; Platelet Count 225 K/uL (130-400); RDW Coefficient of Variation 15.3 % (11.5-14.5); RDW Standard Deviation 53.8 fL (36.4-46.3); Red Blood Count 4.16 M/uL (4.2-5.4); White Blood Count 17.31 K/uL (4.8-10.8)
[2019-03-28 07:17] LABS: Albumin Level 3.1 gm/dl (3.4-5.0); BUN Creatinine Ratio 7.1 (10-20); Calcium 8.7 mg/dl (8.5-10.1); Creatinine Clr Calc Pharmacy 107.1 ml/min; Est GFR (African American) 133.6; Est GFR (Non-African American) 115.3; Potassium 3.6 mmol/L (3.5-5.1)
[2019-03-28 07:19] LABS: Albumin Globulin Ratio 0.8 (0.9-2); Bilirubin,Total 0.6 mg/dl (0.2-1); Globulin 3.7 gm/dl (2.5-4.0); Total Protein 6.8 gm/dl (6.4-8.2)
[2019-03-28] MEDS: MULTIVITAMIN TAB PO SCH (08:13)
[2019-03-28] MEDS: ENOXAPARIN INJ 40 MG/0.4 ML SYR SQ SCH (08:13)
--- NOTE | 2019-03-28 09:08 | Hospitalist Progress Note ---
Date of Service March 28, 2019 Assessment & Plan (1) Bile duct obstruction: MRCP positive for biliary stones. ERCP completed with stent placement. s/p lap gill 03/27. Cont pain control and antiemetics as needed. Cont Ceftriaxone/Flagyl. Blood cultures negative. (2) Jaundice: resolved. Treatment plan as above. (3) Elevated liver enzymes: 2/2 obstructive process. ERCP as above. Cont to monitor. (4) Anxiety: h/o Prozac use, but off 2/2 insurance loss. Used Ativan with success in the past. Will cont this now PRN. (5) DVT prophylaxis: Lovenox Full Code Dispo-Home today labs checked ROS-No Headache, No Visual Changes, No Nausea, No Vomiting, No Fever, No Chills, No Neck Pain or Stiffness, No Chest Pain, No Palpitations, No SOB, No HERRERA, No Cough, No Sputum, No Wheezing, + Abdominal Pain, No Diarrhea, No Hematemesis, No Hemoptysis, No Unexpected Weight Loss, No Flank pain, No Melena, No Hematochezia, No Frequency, No Urgency, No Burning, No Hematuria, No Rashes, No Diaphoresis. Appetite is Normal Physical Exam Gen-AAO x 3, NAD, Afebrile Head-NCAT, EOMI, PERRLA, Anicteric Sclera, No Posterior Pharyngeal Erythema Neck-Supple, No JVD, No Thyromegaly, No Masses, No LAD, No Bruits Lungs-Clear to Auscultation Bilaterally, No Rales, No Rhonchi, No Wheezing, No Crepitus Chest-No S4, +S1, +S2, No S3, No Murmurs, No Rubs, No Gallops, No Ectopy Abdomen-Soft, Bowel Sounds Present, Tender, Non Distended, No Hepatomegaly, No Splenomegaly, No Palpable Masses, No Rebound, No Rigidity, No Guarding Musculoskeletal-Full Range of Motion Bilaterally, No CVAT Extremities-No Cyanosis, No Clubbing, No Edema Nuero-Cranial Nerves II-XII grossly intact, Motor WNL, DTRs WNL, Strength WNL, Non Focal Psych-Normal Mood Results & Data Vital Signs (Past 12 Hours) Vital Signs Temp Pulse Resp BP Pulse Ox 03/28/19 07:19 36.9 C 83 16 133/82 95 03/28/19 04:18 37 C 81 16 141/85 H 96 03/27/19 23:00 37.2 C 85 16 133/78 94
[2019-03-28] MEDS: OXYCODONE/ACETAMINOPHEN 5mg/325mg TAB PO PRN (11:35)
--- NOTE | 2019-03-28 12:09 | Surgery Progress Note ---
Date of Service F/U S/P lap gill POD 1 pt is doing fine, less abdominal pain, no nausea, no vomiting, no fever. March 28, 2019 Assessment & Plan (1) Abdominal pain: pt is a 33 year-old female who was admitted to hospital for 1 week history RUQ pain, abnormal LFT'S IMP: RUQ pain, abnormal LFT'S, possible CBD stone, cholelithiasis, intrahepatic narrowing duct( left and right) Plan, I agree with treatment plan, GI will do ERCP first, I will do laparoscopic cholecystectomy on next Tuesday or Tuesday, D/W benefits, risks and alternatives of the surgery, pt understood, she agrees with the plan, I answered all questions, 03/25/2019 8:45AM, Lft's better, schedule for laparoscopic appendectomy 10am 03/27/2019 pt agrees with the plan, 03/26/2019 10 : 58AM doing fine, ERCP today, laparoscopic cholecystectomy , possible open or cholangiogram tomorrow, D/W benefits, risks and alternatives of the surgery, the risks - infection, bleeding, injury CBD, pt understood, she agrees with the surgery, I answered all questions, 03/28/2019 12:07PM doing fine, pt can be discharged home today, keep the dressing on for 4 days, she can take a shower on 04/01/2019, no heavy lifting >20 LBS for 4 weeks, F/U me in 1-2 weeks, (2) Jaundice: ERCP (3) RUQ abdominal pain: (4) Bile duct obstruction: (5) Cholelithiasis: laparoscopic cholecystectomy Subjective Improved after surgery Difficult night with pain after ERCP tolerating PO and asking for an advancement in her diet. Physical Exam Constitutional: WD/WN, vitals as above well developed and well nourished ENMT: external ear and nose normal, oropharynx normal Neck: trachea midline, no thyromegaly Respiratory: normal respiratory effort, lungs clear to auscultation normal respiratory effort Cardiovascular: RRR, no murmur, no edema Rate/Rhythm: regular rate and regular rhythm Heart Sounds: normal S1 and normal S2 Gastrointestinal (Abdomen): Percussion/Palpation: abdomen soft all dressing intact, mild tenderness, no rebound pain, Musculoskeletal: no cyanosis or clubbing, extremities motor strength 5/5 Skin: no rashes, warm and dry + jaundice Neurologic: awake Psychiatric: Orientation: alert and oriented x 3 Results & Data Vital Signs (Past 12 Hours) Vital Signs Temp Pulse Resp BP Pulse Ox 03/28/19 07:19 36.9 C 83 16 133/82 95 03/28/19 04:18 37 C 81 16 141/85 H 96
--- NOTE | 2019-03-28 12:13 | Discharge Summary ---
Date of Service March 28, 2019 Admission HPI Per Admitting Provider 1 week history of achy epigastric discomfort, intermittent symptoms somewhat worsened with food intake. No fever, no chills. Some nausea, dry heaving. No actual emesis. Patient worried it might be her gallbladder. 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 Admission Exam Per Admitting Provider GENERAL: Slightly uncomfortable, pleasant, obese, no respiratory distress SKIN: Normal color, warm HEENT: [place] palpebral conjunctivae, no ptosis, dry buccal mucosa NECK : Supple, no tenderness CHEST : CTA, no tenderness HEART : RRR, no obvious murmurs ABDOMEN: Some distention, epigastric tenderness EXTREMITIES : No LE swelling/tenderness, no other conspicuous deformities noted NEUROLOGIC : Coherent, no facial asymmetry, no other gross focality Principal Diagnosis (1) Bile duct obstruction: (2) Jaundice: (3) Elevated liver enzymes: (4) Anxiety: Discharge Exam Gen-AAO x 3, NAD, Afebrile Head-NCAT, EOMI, PERRLA, Anicteric Sclera, No Posterior Pharyngeal Erythema Neck-Supple, No JVD, No Thyromegaly, No Masses, No LAD, No Bruits Lungs-Clear to Auscultation Bilaterally, No Rales, No Rhonchi, No Wheezing, No Crepitus Chest-No S4, +S1, +S2, No S3, No Murmurs, No Rubs, No Gallops, No Ectopy Abdomen-Soft, Bowel Sounds Present, Tender, Non Distended, No Hepatomegaly, No Splenomegaly, No Palpable Masses, No Rebound, No Rigidity, No Guarding Musculoskeletal-Full Range of Motion Bilaterally, No CVAT Extremities-No Cyanosis, No Clubbing, No Edema Nuero-Cranial Nerves II-XII grossly intact, Motor WNL, DTRs WNL, Strength WNL, Non Focal Psych-Normal Mood Discharge Data Allergies Allergy/AdvReac Type Severity Reaction Status Date / Time Sulfa (Sulfonamide Allergy Unknown Unknown Verified 03/23/19 20:24 Antibiotics) Consultations 03/23/19 21:26 ED Decision to Admit Stat 03/23/19 23:29 Consult Gastroenterology Routine 03/24/19 15:54 Consult General Surgery Routine Procedures Performed Operation Date: 03/26/19 07:00 Actual Procedures p Endoscopic Retrograde Cholangiopancreatogram(Not Applicable) - Odin Allen MD Operation Date: 03/27/19 07:00 Actual Procedures p Laparoscopic Cholecystectomy(Not Applicable) - Kianna Corbett MD Ordered Studies 03/23/19 19:29 US gallbladder Stat 03/23/19 22:40 MR MRCP Urgent 03/26/19 14:15 FL ERCP biliary ductal Routine Current Diagnoses Anxiety disorder, unspecified (03/24/19) Calculus of gallbladder without cholecystitis without obstruction (03/24/19) Obstruction of bile duct (03/24/19) Right upper quadrant pain (03/24/19) Unspecified abdominal pain (03/24/19) Unspecified jaundice (03/24/19) Abnormal levels of other serum enzymes (03/24/19) Encounter for other preprocedural examination (03/24/19) Encounter for prophylactic measures, unspecified (03/24/19) Allergies Sulfa (Sulfonamide Antibiotics) Allergy (Unknown, Verified 03/23/19 20:24) Unknown Height/Weight/Isolation Height 5 ft Weight 73 kg Chemistry 03/27/19 03/28/19 10:15 06:17 Sodium 136 141 Potassium 3.8 3.6 Chloride 105 108 H Carbon Dioxide 24 30 Anion Gap 7.0 3.0 BUN 3 L 5 L Creatinine 0.62 0.66 Glucose 147 H 90 Microbiology 03/24/19 16:05 Blood Aerobic Blood Culture - Preliminary No growth in Aerobic bottle after 48 hours. 03/24/19 16:05 Blood Anaerobic Blood Culture - Final 03/24/19 16:05 Blood Aerobic Blood Culture - Preliminary No growth in Aerobic bottle after 48 hours. 03/24/19 16:05 Blood Anaerobic Blood Culture - Preliminary No growth in Anaerobic bottle after 48 hours. Hospital Course (1) Bile duct obstruction: MRCP positive for biliary stones. ERCP completed with stent placement. s/p lap gill 03/27. DC home today (2) Jaundice: resolved. Treatment plan as above. (3) Elevated liver enzymes: 2/2 obstructive process. ERCP as above. (4) Anxiety: h/o Prozac use, but off 2/2 insurance loss. Used Ativan with success in the past. (5) DVT prophylaxis: Dispo-Home today Follow up c Dr Arredondo 04/03 at 1145 Total Time Total Time Spent Total Time Spent (In Minutes): 40 mins Discharge Plan Discharge Items Patient Disposition: Home - Self-Care Reason For Visit: ABD PAIN Discharge Diagnosis: (1) Bile duct obstruction: (2) Jaundice: (3) Elevated liver enzymes: (4) Anxiety: Condition on Discharge: Good Activity: Per Instructions section Lifting: None Bathing: Keep incision dry Sexual Activity: Wait until after follow-up appointment Exercise/Sports: Wait until after follow-up appointment Driving/Machine Use: Resume 3 days after discharge Weightbearing: Full weightbearing Non-emergency contact: Primary Care Provider and Surgeon Call non-emergency contact if: you have any medication questions Follow-up/Referrals: Tiffanie Arredondo DO [Primary Care Provider] - 04/03/19 10:45 am Kianna Corbett MD [Physician] - (Call for instructions) Diet: Regular Addtl Attending Provider Instructions: See Below 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 You may shower in 3 day(s). Sponge bath and wash hair in meantime. No submergi ng incisions underwater for 2 weeks (no bathing, swimming, or hot tubs) Keep dressings clean and dry until showering. After showering, remove outer dressings and replace daily. Leave steri strips on incisions for 7 days and then remove. They may fall off on their own that is okay. You will be given prescription for narcotic pain medication. This medication may make you drowsy. It can also cause constipation. Take as directed as needed for pain. You may take extra strength [Tylenol/Ibuprofen] as needed for mild pain. - For example: 650 mg of Tylenol every 6 hours as needed and/or 600 mg of Ibuprofen every 6 hours as needed (take with food) - If you take Tylenol while taking Percocet, DO NOT exceed 3000 mg of Tylenol in 24 hour period. For constipation take stool softener (such as OTC Colace daily) and drink plenty of water. Follow-up in surgical office in 2 week(s). Please call office at [phone] to make an appointment. Pending Studies at Discharge: Yes (gallbladder pathology, will be reviewed at follow-up visit) Stand-Alone Forms: Call Back Authorization, My [facility], Smoking Cessation Medications and DC Order Prescriptions: New oxycodone 5 mg capsule 5 mg PO Q6H PRN (Reason: pain) Qty: 30 RF: 0 acetaminophen [Tylenol Extra Strength] 500 mg tablet 500 mg PO Q4H Qty: 60 RF: 0 Continued multivitamin Tablet,Chewable 1 tab PO DAILY RF: 0 Discharge Orders: Discharge Order (Routine); Ordered 03/28/19 Ordered By: Kiran Sanchez Admission Data Admit Date/Time: 03/24/19 14:49 Attending Provider: Kiran Sanchez Admit Provider: Dawson Oswald Primary Care Provider: Tiffanie Arredondo Other Providers: Dawson Oswald ; Willi Panda ; Kianna Corbett Other Interventions: Discharge Summary Assessment (RN) Last Done: 03/28/19 12:20
== END 2019-03-28 13:00 | disposition home or self-care (01) | DRG 418 ==
LOC: 3W 17:42 → ED 17:42 → 3W 23:20 → SUATTDRO 03-24 14:49

== ENCOUNTER 2023-01-17 03:31 | Inpatient (IN) ==
[2023-01-17] MEDS ORDERED: AZITHROMYCIN 500 MG in DEXTROSE 5% 250 ML IV ONE (04:18)
--- NOTE | 2023-01-17 04:18 | History & Physical Report ---
Date of Service January 17, 2023 Assessment & Plan (1) uterine contractions in third trimester, antepartum: Plan: Repeat bilateral salpingectomy (2) History of 2 sections: (3) Sterilization: History of Present Illness Chief Complaint: ruptured membranes Primary Care Provider: LEX PCP 37 F P2012 at 36.6 weeks presents with SROM clear fluid this morning at 0230 with onset of contractions. Allergies Allergy/AdvReac Type Severity Reaction Status Date / Time Sulfa (Sulfonamide AdvReac Intermediate nauseated Verified 05/07/20 08:29 Antibiotics) Home Medications Medication Instructions Recorded Confirmed Type 1 tab PO DAILY 12/26/22 12/26/22 History iron 125 mg-iron 25 mg (asp 125 PO 12/26/22 History gly)-folic acid 1 mg-mvit,min#38 tablet magnesium 100 mg capsule 100 mg PO DAILY 12/26/22 12/26/22 History nifedipine 30 mg tablet,extended 30 mg PO BID #30 tabs 12/26/22 Rx release 24 hr (Procardia XL) riboflavin (vitamin B2) 25 mg mg 12/26/22 History tablet Patient History Medical History Anxiety and depression Migraine Post traumatic stress disorder Surgical History History of delivery X 2 History of cholecystectomy History of ERCP [place] teeth removed Family History Grandmother (Maternal) Family history of esophageal cancer Father Family hx colonic polyps Other No family history of adverse response to anesthesia Social History Smoking Status: Former smoker Second Hand Exposure: Yes ( A CHILD); Do You Dip or Chew Tobacco: No; Hx Alcohol Use: No Hx Substance Use: No Preferred Language: [place] Communication Ability: Effective Functional Tester Typewriters Required: No Beliefs That Will Affect Care: None marital status: Legally Seperated Current Living Situation: Family Current Living Situation Comment: 15, 17 year old girls Other Information That Helps Us Care for You: No Feels Safe at Home: Yes Safety Concerns: Feels Safe At This Time Assistive Devices: None OB History x2 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 History neg Review of Systems All systems reviewed & are unremarkable except as noted in HPI & below Physical Exam Constitutional: WD/WN, vitals as above Eyes: PERRL, conjunctivae normal, anicteric sclerae Neck: trachea midline, no thyromegaly Respiratory: normal respiratory effort, lungs clear to auscultation Cardiovascular: RRR, no murmur, no edema Gastrointestinal (Abdomen): Inspection/Auscultation: abdomen normal to inspection Musculoskeletal: Extremities: extremities normal to inspection Skin: no rashes, warm and dry Neurologic: patellar DTR's 2+ bilat, sensation intact Psychiatric: A+Ox3, euthymic affect Genitourinary: OB Exam Abdomen: + fundal height and + vertex OB Exam Monitor Tracing: + external FHT monitor used, + external uterine monitor used and + category I Results & Data Vital Signs (Past 12 Hours) Vital Signs Temp Pulse Resp BP 01/17/23 03:52 36.8 C 20 01/17/23 03:46 77 165/90 H 01/17/23 03:41 84 188/114 H Code Status & VTE Plan VTE Prophylaxis Plan VTE Prophylaxis will be ordered: No Monitoring External Monitor Cat 1
[2023-01-17] MEDS ORDERED: LACTATED RINGER'S 250 ML IV ONE (04:25)
[2023-01-17] MEDS ORDERED: SODIUM CHLORIDE 0.9% 250 ML IV PRN (04:27)
[2023-01-17] MEDS ORDERED: LACTATED RINGER'S 1,000 ML IV SCH ×2 (04:30→06:45)
[2023-01-17] MEDS ORDERED: OXYTOCIN 10 UNITS/ML VIAL ONE (04:48)
--- NOTE | 2023-01-17 04:48 | Anesthesiology Consultation ---
Date of Service January 17, 2023 Assessment & Plan Chart Review Chart Review: Acceptable Risk for Surgery Consults Requested none History Surgery Operation Date: 01/17/23 05:00 Proposed Procedures p Section in LD - Daniel Patel MD Height/Weight Height: 5 ft Weight: 101.151 kg Allergies Allergy/AdvReac Type Severity Reaction Status Date / Time Sulfa (Sulfonamide AdvReac Intermediate nauseated Verified 05/07/20 08:29 Antibiotics) Medications Home Medications Medication Instructions Recorded Confirmed Last Taken 1 tab PO DAILY 12/26/22 12/26/22 12/24/22 08:00 iron 125 mg-iron 25 mg (asp 125 PO 12/26/22 12/24/22 08:00 gly)-folic acid 1 mg-mvit,min#38 tablet magnesium 100 mg capsule 100 mg PO DAILY 12/26/22 12/26/22 12/24/22 08:00 nifedipine 30 mg tablet,extended 30 mg PO BID #30 tabs 12/26/22 Unknown release 24 hr (Procardia XL) riboflavin (vitamin B2) 25 mg mg 12/26/22 12/24/22 08:00 tablet Past Medical History Medical History Anxiety and depression Migraine Post traumatic stress disorder Past Family History Family History Grandmother (Maternal) Family history of esophageal cancer Father Family hx colonic polyps Other No family history of adverse response to anesthesia Past Surgical History Surgical History History of delivery X 2 History of cholecystectomy History of ERCP [place] teeth removed Social History Smoking Status: Former smoker tobacco type: cigarettes Do You Dip or Chew Tobacco: No Hx Alcohol Use: No alcohol intake frequency: holidays/special occasions only Hx Substance Use: No Physical Exam Vital Signs Last Vital Signs Temp 36.8 C 01/17/23 03:52 Pulse 77 01/17/23 03:46 Resp 20 01/17/23 03:52 BP 165/90 H 01/17/23 03:46 Constitutional WD/WN, vitals as above Eyes PERRL, conjunctivae normal, anicteric sclerae Neck trachea midline, no thyromegaly Respiratory normal respiratory effort, lungs clear to auscultation Cardiovascular RRR, no murmur, no edema Gastrointestinal (Abdomen) Inspection/Auscultation: abdomen normal to inspection Musculoskeletal Extremities: extremities normal to inspection Skin no rashes, warm and dry Neurologic patellar DTR's 2+ bilat, sensation intact Psychiatric A+Ox3, euthymic affect Genitourinary OB Exam Abdomen: + fundal height and + vertex OB Exam Monitor Tracing: + external FHT monitor used, + external uterine monitor used and + category I
[2023-01-17] MEDS ORDERED: fentaNYL citrate PF 100 MCG/2 ML VIAL ONE (04:49)
[2023-01-17] MEDS ORDERED: MoRPHine SULFATE PF 1 MG/ML 10 ML AMP/VIAL ONE (04:49)
[2023-01-17 04:58] LABS: Hemoglobin 11.6 g/dl (12.0-16.0); Mean Corpuscular Hemoglobin 31.4 pg (25.0-34.0); Mean Corpuscular Hgb Conc 33.1 g/dL (32.0-36.0); Mean Corpuscular Volume 94.6 fL (80.0-100.0); Mean Platelet Volume 11.3 fL (9.4-12.4); Platelet Count 264 K/uL (130-400); RDW Coefficient of Variation 14.8 % (11.5-14.5); White Blood Count 11.16 K/ul (4.8-10.8)
--- NOTE | 2023-01-17 05:06 | Anesthesiology Consultation ---
Date of Service January 17, 2023 Assessment & Plan Chart Review Chart Review: Acceptable Risk for Surgery and Patient NOT seen in Pre Admission Testing Consults Requested none Pulmonary ASA ASA3 Proposed Anesthesia Anesthesia Type: Spinal History Surgery Operation Date: 01/17/23 05:00 Proposed Procedures p Section in LD - Daniel Patel MD Height/Weight Height: 5 ft Weight: 101.151 kg Allergies Allergy/AdvReac Type Severity Reaction Status Date / Time Sulfa (Sulfonamide AdvReac Intermediate nauseated Verified 05/07/20 08:29 Antibiotics) Medications Home Medications Medication Instructions Recorded Confirmed Last Taken 1 tab PO DAILY 12/26/22 12/26/22 12/24/22 08:00 iron 125 mg-iron 25 mg (asp 125 PO 12/26/22 12/24/22 08:00 gly)-folic acid 1 mg-mvit,min#38 tablet magnesium 100 mg capsule 100 mg PO DAILY 12/26/22 12/26/22 12/24/22 08:00 nifedipine 30 mg tablet,extended 30 mg PO BID #30 tabs 12/26/22 Unknown release 24 hr (Procardia XL) riboflavin (vitamin B2) 25 mg mg 12/26/22 12/24/22 08:00 tablet Active Medications Generic Name Dose Route Start Last Admin Trade Name Freq PRN Reason Stop Dose Admin Cefazolin Sodium 72.5 mls @ 130 mls/hr 01/17/23 06:00 01/17/23 04:48 Ancef 3000mg IV 01/17/23 06:34 130 mls/hr PREOP JERICA Administration Protocol Lactated Ringer's 1,000 mls @ 125 mls/hr 01/17/23 04:30 01/17/23 04:49 Lr IV 02/16/23 04:29 999 mls/hr .Q8H JERICA Administration Past Medical History Medical History Anxiety and depression Migraine Post traumatic stress disorder Past Family History Family History Grandmother (Maternal) Family history of esophageal cancer Father Family hx colonic polyps Other No family history of adverse response to anesthesia Past Surgical History Surgical History History of delivery X 2 History of cholecystectomy History of ERCP [place] teeth removed Social History Smoking Status: Former smoker tobacco type: cigarettes Do You Dip or Chew Tobacco: No Hx Alcohol Use: No alcohol intake frequency: holidays/special occasions only Hx Substance Use: No Physical Exam Vital Signs Last Vital Signs Temp 36.8 C 01/17/23 03:52 Pulse 77 01/17/23 03:46 Resp 20 01/17/23 03:52 BP 165/90 H 01/17/23 03:46 Constitutional WD/WN, vitals as above Eyes PERRL, conjunctivae normal, anicteric sclerae Neck trachea midline, no thyromegaly Respiratory normal respiratory effort, lungs clear to auscultation Cardiovascular RRR, no murmur, no edema Gastrointestinal (Abdomen) Inspection/Auscultation: abdomen normal to inspection Musculoskeletal Extremities: extremities normal to inspection Skin no rashes, warm and dry Neurologic patellar DTR's 2+ bilat, sensation intact Psychiatric A+Ox3, euthymic affect Genitourinary OB Exam Abdomen: + fundal height and + vertex OB Exam Monitor Tracing: + external FHT monitor used, + external uterine monitor used and + category I Testing Laboratory Results 01/17/23 04:41
[2023-01-17] MEDS ORDERED: ceFAZolin 2000MG 2,000 MG/15 ML SYR IV SCH (06:00)
[2023-01-17] MEDS ORDERED: CITRIC ACID/SODIUM CITRATE 15 ML UDC PO SCH (06:00)
[2023-01-17] MEDS ORDERED: NALOXONE HCL 1 MG in SODIUM CHLORIDE 0.9% 1,000 ML IV PRN (06:07)
[2023-01-17] MEDS ORDERED: LACTATED RINGER'S 500 ML IV PRN (06:07)
[2023-01-17] MEDS ORDERED: ONDANSETRON INJ 2 MG/ML 2 ML VIAL IV PRN ×2 (06:07→06:40)
[2023-01-17] MEDS ORDERED: ePHEDrine sulfate 50 MG/ML AMP IV PRN (06:07)
[2023-01-17] MEDS ORDERED: NALOXONE HCL 0.4 MG/1 ML VIAL/CARP IV PRN (06:07)
[2023-01-17] MEDS ORDERED: MoRPHine SULFATE PF 1 MG/ML 10 ML AMP/VIAL INT SPINAL ONE (06:07)
[2023-01-17] MEDS ORDERED: NALOXONE HCL 0.08 MG in SYRINGE 1.8 ML IV PRN (06:07)
[2023-01-17] MEDS ORDERED: NALBUPHINE HCL INJ 10 MG/ML AMP IV PRN (06:07)
[2023-01-17] MEDS ORDERED: diphenhydrAMINE 50 MG/ML VIAL IV PRN (06:07)
[2023-01-17] MEDS ORDERED: HYDROmorphone INJ 0.5 MG/0.5 ML SYR IV PRN (06:07)
[2023-01-17] MEDS ORDERED: DC INTRASPINAL MORPHINE SCH (06:15)
[2023-01-17] MEDS ORDERED: NO NARCOTICS OR SEDATIVES SCH (06:15)
[2023-01-17] MEDS ORDERED: SODIUM CHLORIDE 0.9% 1,000 ML IV SCH (06:15)
[2023-01-17] MEDS ORDERED: DIPHTHERIA/TETANUS/PERTUSSIS Vaccine (Tdap, Age 7+yrs) 0.5mL SYR/VL IM ONE (06:40)
[2023-01-17] MEDS ORDERED: HYDROCORTISONE ACETATE 25 MG SUPP PR PRN (06:40)
[2023-01-17] MEDS ORDERED: MAGNESIUM HYDROXIDE SUSP 30 ML UDC PO PRN (06:40)
[2023-01-17] MEDS ORDERED: PROMETHAZINE HCL 25 MG in SODIUM CHLORIDE 0.9% 50 ML IV PRN (06:40)
[2023-01-17] MEDS ORDERED: SENNA 8.6 MG TAB PO PRN (06:40)
[2023-01-17] MEDS ORDERED: BENZOCAINE 20% SPRY 85 APPLN/85 GM CAN EXT PRN (06:40)
--- NOTE | 2023-01-17 06:43 | Post Operative Brief Note ---
Immediate Post Op Note v1 Date of Surgery January 17, 2023 Pre & Post Diagnosis Operation Date: 01/17/23 05:00 Pre-Op Diagnosis: 1. SROM patient requesting repeat section with voluntary sterilization Post-Op Diagnosis: 1. SROM patient requesting repeat section with voluntary sterilization I identified the patient and participated in the time-out.: Yes Procedure Operation Date: 01/17/23 05:00 Actual Procedures p Section in LD - Daniel Patel MD s Post Tubal Ligation Labor & Deliv - Daniel Patel MD Surgeon Daniel Patel MD Pediatric Cardiologist Rita MATTHEWS Estimated Blood Loss 500 Findings Consistent with Post-Op Diagnosis live male Apgars 6/8 weight pending nuchal cord x1 Fluids LR 700 ml. Specimens placenta bilateral tubes Drains Valente Catheter (draining ) Anesthesia Type Spinal Complications none Disposition Accompanied Patient To Recovery: Yes Overlapping Procedure I was present for: the critical portions of procedure. I was immediately available: during the entire case. Back up surgeon: was not required during procedure.
--- NOTE | 2023-01-17 07:03 | Operative Report ---
Post Operative Report Pre & Post Diagnosis Operation Date: 01/17/23 05:00 Pre-Op Diagnosis: 1. SROM patient requesting repeat section with voluntary sterilization Post-Op Diagnosis: 1. SROM patient requesting repeat section with voluntary sterilization I identified the patient and participated in the time-out.: Yes Procedure Operation Date: 01/17/23 05:00 Actual Procedures p Section in LD - Daniel Patel MD s Post Tubal Ligation Labor & Deliv - Daniel Patel MD Surgeon Daniel Patel MD Measurer Rita MATTHEWS Estimated Blood Loss 500 Findings Consistent with Post-Op Diagnosis Male Apgars 6 and 8 nuchal cord x1 weight pending Fluids 700 mL LR Specimens Placenta Bilateral tubes Drains Valente Anesthesia Type Spinal Complications None Disposition Accompanied Patient To Recovery: Yes Indications Previous x2 Voluntary sterilization procedure Description of Procedure Under satisfactory spinal anesthesia the patient was prepped draped in usual sterile fashion a timeout was called prior to the start of the procedure antibiotics were given preop. A low Pfannenstiel incision through her prior scar was then made carried the incision down through the layers of the abdominal cavity into the abdominal cavity and then this opening up the peritoneal cavity there was a couple of adhesions on the bladder flap the bladder flap was then taken down with Metzenbaum scissors the uterine incision was made high up on the uterus and a low transverse fashion and then upon entering into the uterine cavity the incision was widened in the AP diameter. Amniotic sac was nicked copious clear fluid was noted consistent with polyhydramnios. The infant was then delivered from the vertex presentation with the aid of fundal pressure. Delivered a live male Apgars were 6 and 8 with delayed cord clamping and a nuchal cord x1 which was reduced at time of delivery. The baby was handed to the bulk station operator for warming. Uterus was then exteriorized ring forceps were then placed on both angles the inferior margin uterus was cleaned of all clots and debris with lap pad. The uterus was then closed in a single layer closure with 0 Vicryl suture in a continuous interlocking fashion. Tubes ovaries bilaterally were found to be within normal limits the initial sponge needle instrument count were found to be correct patient once more verbally consented for sterilization procedure the right tube was then grasped with a Nely clamp and the hand-held LigaSure was then used to remove the right tube and then subsequently the left tube. No active bleeding was noted both the right and left tubes were following without any bleeding and they were hemostatic. Uterus was then placed back into the normal anatomical position. The contents of the pelvic and abdominal cavity were then irrigated. The muscle was then reapproximated with 0 Vicryl suture in interrupted fashion. Followed by fascia reapproximated in a continuous fashion. 4 oh rather 2-0 plain suture was then used to reapproximated the subcuticular space in an interrupted fashion followed by alyssa for skin tag. The final sponge needle instrument count were found to be correct the patient tolerated procedure well and then she was placed on a stretcher in the supine position moved to recovery room in stable condition the final sponge needle instrument count were found to be correct. I attest to the content of the Intraoperative Record and any orders documented therein. Any exceptions are noted below.
[2023-01-17] MEDS: OXYTOCIN 20 UNITS in LACTATED RINGER'S 1,000 ML IV SCH ×2 (07:41→17:41)
[2023-01-17] MEDS ORDERED: NON-FORMULARY MEDICATION (Prenatal 1 TAB) PO SCH (09:00)
[2023-01-17] MEDS ORDERED: NON-FORMULARY MEDICATION (Magnesium 100 mg Capsule) PO SCH (09:00)
[2023-01-17] MEDS: FERROUS SULFATE 325 MG TAB PO SCH (11:21)
[2023-01-17] MEDS: DOCUSATE SODIUM 100 MG CAP PO SCH ×2 (11:21→19:59)
[2023-01-17] MEDS: SIMETHICONE 80 MG CHEW PO SCH ×4 (11:21→19:59)
[2023-01-17] MEDS: PRENATAL VITAMIN 1 TAB PO SCH (11:21)
[2023-01-17] MEDS: KETOROLAC 30 MG/ML VIAL IV PRN ×2 (14:54→21:26)
[2023-01-18] MEDS ORDERED: KETOROLAC 30 MG/ML VIAL IV PRN (00:08)
[2023-01-18] MEDS ORDERED: MEPERIDINE HCL 50 MG/ML CARP IV PRN (00:08)
[2023-01-18] MEDS ORDERED: diphenhydrAMINE 50 MG/ML VIAL IV PRN (00:08)
[2023-01-18] MEDS ORDERED: diphenhydrAMINE Capsule 25 MG CAP PO PRN (00:08)
[2023-01-18] MEDS: IBUPROFEN 600 MG TAB PO PRN ×5 (05:01→22:04)
[2023-01-18] MEDS: oxyCODONE/ACETAMINOPHEN 5mg/325mg TAB PO PRN ×5 (05:01→22:05)
[2023-01-18 08:02] LABS: Basophils # (auto) 0.03 K/uL (0.00-0.20); Basophils % (auto) 0.3 %; Eosinophils # (auto) 0.07 K/uL (0.00-0.50); Eosinophils % (auto) 0.6 %; Hematocrit (blood only) 31.2 % (37.0-47.0); Hemoglobin 10.6 g/dl (12.0-16.0); Immature Granulocytes # (auto) 0.05 K/uL (0.01-0.20); Immature Granulocytes % (auto) 0.4 %; Lymphocytes # (auto) 1.55 K/uL (1.20-3.40); Lymphocytes % (auto) 13.5 %; Mean Corpuscular Volume 94.3 fL (80.0-100.0); Mean Platelet Volume 11.3 fL (9.4-12.4); Monocytes % (auto) 4.4 %; Neutrophils # (auto) 9.28 K/uL (1.40-6.50); Neutrophils % (auto) 80.8 %; Platelet Count 225 K/uL (130-400); RDW Standard Deviation 51.4 fL (36.4-46.3); Red Blood Count 3.31 M/uL (4.20-5.40); White Blood Count 11.48 K/ul (4.8-10.8)
[2023-01-18] MEDS: DOCUSATE SODIUM 100 MG CAP PO SCH ×2 (08:39→20:14)
[2023-01-18] MEDS: SIMETHICONE 80 MG CHEW PO SCH ×4 (08:39→20:14)
[2023-01-18] MEDS: PRENATAL VITAMIN 1 TAB PO SCH (08:39)
[2023-01-18] MEDS: FERROUS SULFATE 325 MG TAB PO SCH (08:39)
--- NOTE | 2023-01-18 09:57 | Obstetrical Progress Note ---
Date of Service January 18, 2023 Assessment & Plan (1) delivery delivered: POD #1 pt doing well anticipate disch tomorrow Results & Data Vital Signs (Past 12 Hours) Vital Signs Temp Pulse Resp BP Pulse Ox O2 Del Method 01/18/23 08:00 36.7 C 74 16 124/80 97 Room Air 01/18/23 04:50 36.6 C 75 18 122/83 97 Room Air 01/17/23 23:15 16 95 01/18/23 00:15 18 96 01/18/23 00:15 Room Air 01/18/23 00:15 36.7 C 72 18 134/81 96 Room Air 01/17/23 22:30 20 96
[2023-01-18] MEDS ORDERED: bisacodyL 5 MG TABEC PO SCH (20:00)
[2023-01-19] MEDS: IBUPROFEN 600 MG TAB PO PRN ×3 (01:37→10:05)
[2023-01-19] MEDS: oxyCODONE/ACETAMINOPHEN 5mg/325mg TAB PO PRN ×3 (01:38→10:05)
[2023-01-19] MEDS ORDERED: bisacodyL 10 MG SUPP PR PRN (06:36)
[2023-01-19 06:55] LABS: Hematocrit (blood only) 32.9 % (37.0-47.0); Hemoglobin 10.8 g/dl (12.0-16.0)
[2023-01-19] MEDS: DOCUSATE SODIUM 100 MG CAP PO SCH (08:18)
[2023-01-19] MEDS: SIMETHICONE 80 MG CHEW PO SCH (08:18)
[2023-01-19] MEDS: FERROUS SULFATE 325 MG TAB PO SCH (08:18)
[2023-01-19] MEDS: PRENATAL VITAMIN 1 TAB PO SCH (08:18)
--- NOTE | 2023-01-19 10:19 | Obstetrical Progress Note ---
Date of Service January 19, 2023 Subjective Ambulation: ambulating normally Voiding: no voiding problems Passing Gas:: Yes Diet Tolerance:: regular diet Lochia:: Small Feeding Type:: breast feeding Current Pain Level(1-10): 0 doing well Physical Exam Constitutional WD/WN, vitals as above Gastrointestinal (Abdomen) abdomen soft and non-tender, incision c/d/i Musculoskeletal Extremities: extremities normal to inspection Skin no rashes, warm and dry Neurologic patellar DTR's 2+ bilat, sensation intact Psychiatric A+Ox3, euthymic affect Results & Data Vital Signs (Past 12 Hours) Vital Signs Temp Pulse Resp BP BP Pulse Ox O2 Del Method 01/19/23 07:15 36.9 C 72 18 125/78 97 Room Air 01/19/23 01:30 36.6 C 67 18 125/80 Laboratory Results Laboratory Results - last 72 hr 01/17/23 01/17/23 01/18/23 04:41 04:41 07:35 WBC 11.16 H 11.48 H RBC 3.70 L 3.31 L Hgb 11.6 L 10.6 L Hct 35.0 L 31.2 L MCV 94.6 94.3 MCH 31.4 32.0 MCHC 33.1 34.0 RDW Std Deviation 51.0 H 51.4 H RDW Coeff of Dennys 14.8 H 15.0 H Plt Count 264 225 MPV 11.3 11.3 Immature Gran % (Auto) 0.4 Neut % (Auto) 80.8 Lymph % (Auto) 13.5 Overton % (Auto) 4.4 Eos % (Auto) 0.6 Baso % (Auto) 0.3 Neut # (Auto) 9.28 H Lymph # (Auto) 1.55 [place]ton # (Auto) 0.50 Eos # (Auto) 0.07 Baso # (Auto) 0.03 Immature Gran # (Auto) 0.05 Blood Type A Negative Antibody Screen NEGATIVE Crossmatch See Detail 01/19/23 06:28 WBC RBC Hgb 10.8 L Hct 32.9 L MCV MCH MCHC RDW Std Deviation RDW Coeff of Dennys Plt Count MPV Immature Gran % (Auto) Neut % (Auto) Lymph % (Auto) [place]ton % (Auto) Eos % (Auto) Baso % (Auto) Neut # (Auto) Lymph # (Auto) [place] # (Auto) Eos # (Auto) Baso # (Auto) Immature Gran # (Auto) Blood Type Antibody Screen Crossmatch
--- NOTE | 2023-01-26 17:42 | Discharge Summary ---
Date of Service January 26, 2023 Admission HPI Per Admitting Provider 37 F P2012 at 36.6 weeks presents with SROM clear fluid this morning at 0230 with onset of contractions. Discharge Data Consultations 01/17/23 04:03 Consult Anesthesiology Stat Procedures Performed Operation Date: 01/17/23 05:00 Actual Procedures p Section in LD, Live male @ 0555 - Daniel Patel MD s Post bilateral salpingectomy Labor & Deliv - Daniel Patel MD Hospital Course (1) delivery delivered: (2) Sterilization: Plan The patient delivered a viable male with Apgars 6/8 and nuchal cord x1. Hospital course was uneventful and she was discharged on POD#2. follow up in office for incision check in 1 week,
== END 2023-01-19 12:05 | disposition home or self-care (01) | DRG 785 ==
LOC: OPB 03:31 → 4S1 03:36 → 4E2 09:49
PROC: M.PPTLD (2023-01-17 05:00)
DX: O60.14X0 Preterm labor third trimester with preterm delivery third trimester, not applicable or unspecified; Z79.899 Other long term (current) drug therapy; O42.013 Preterm premature rupture of membranes, onset of labor within 24 hours of rupture, third trimester; O40.3XX0 Polyhydramnios, third trimester, not applicable or unspecified; Z87.891 Personal history of nicotine dependence; O69.81X0 Labor and delivery complicated by cord around neck, without compression, not applicable or unspecified; Z3A.36 36 weeks gestation of pregnancy; O34.211 Maternal care for low transverse scar from previous cesarean delivery; Z37.0 Single live birth; Z30.2 Encounter for sterilization; Z88.2 Allergy status to sulfonamides